=== PATIENT | female | born 1945 | race Caucasian/White ===

== ENCOUNTER 2022-03-29 08:08 | Emergency (ER) | payer OTHER ==
--- OUTSIDE RECORDS SUMMARY | 2022-03-29 08:12 | XMS REPORT | Continuity of Care Document ---
:1945 Author Organization [facility] t Address [address] [place] [address] Care Team Providers Name Role Phone Sunny BELLA, Elyse Butts Primary Care Physician [phone] ALCIRA AHUJA Attending Clinician Unavailable [facility] Attending Clinician Unavailable MARGARET HUANG Attending Clinician Unavailable [facility] Attending Clinician Unavailable CARMEN LOOMIS Attending Clinician Unavailable ELYSE PETERS Attending Clinician Unavailable Sunny BELLA, Elyse Butts Attending Clinician [phone] KURTIS MANUEL Attending Clinician Unavailable Rebeka-Mbayo_A_AH Attending Clinician Unavailable Rebeka-Mbayo_A_AH Admitting Clinician Unavailable Payers Payer Name Policy Type Policy Number Effective Date Expiration Date Jameel chan [employer] 16 [id number] 2021 HMO-POS 00:00:00 [facility] - [id number] 2019 [employer] 00:00:00 (MEDICARE REPLACEMENT/ADVANT AGE - HMO) Problems Condition Condition Condition Status Onset Resolution Last Treating Co mments Source Name Details Category Date Date Treatment Clinician Date Stage 3a Stage 3a Disease Active 2021-04 Kelse y chronic chronic 1-04 Seybflor kidney kidney 00:00: - disease disease 00 Externa l Mild major Mild major Disease Active K elsecassandra depression depression 9-20 Se ybold 00:00: - 00 Externa l Depression Depression Disease Active K elsey , , 5-18 Seybold unspecifie unspecifie 00:00: - d d 00 Externa depression depression l type type Urinary Urinary Disease Active Ghazal incontinen incontinen Se ybold ce, mixed ce, mixed - Externa l Hyperlipid Hyperlipid Disease Active Serene perez emia emia Seybold - Externa l HTN HTN Disease Active Ghazal (hypertens (hypertens Se ybold ion) ion) - Externa l Controlled Controlled Disease Active Serene perez type 2 type 2 Seybold diabetes diabetes - mellitus mellitus 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 l Allergies, Adverse Reactions, Alerts Allergy Allergy Status Severity Reaction(s) Onset Inactive Treating Comm ents Source Name Type Date Date Clinician Celecoxi Propensi Active Hives Ghazal b ty to 1-25 Seybold adverse 00:00: - reaction 00 Externa s l Celecoxi Propensi Active Hives Ghazal b ty to 1-25 Seybold adverse 00:00: reaction 00 s Social History Social Habit Start Date Stop Date Quantity Comments Source Tobacco use and 2021-12-28 2021-12-28 Smokeless tobacco Ke lsey Seybold - exposure 00:00:00 00:00:00 non-user External Sex [birth year] At [birth year] F Ghazal Se ybold - 00:00:00 00:00:00 External Smoking Status Start Date Stop Date Source Never smoked tobacco Ghazalelena Lee old - External Medications Ordered Filled Start Stop Current Ordering Indication Dosage Frequency Signature Comments Components Source Medication Medication Date Date Medication? Clinician (SIG) Name Name Cranberry 2021-04- No 1{capsu Take 1 Ke lsey 500 MG oral 04-16 le} capsule by S eybold Capsule 14:24: 00:00 mouth 2 - 12 :00 times Externa daily With l vitamin C Multiple 2021-04 Yes 1{capsu Take 1 Emerald ey Vitamins-Mi 04-16 le} capsule by Se ybold nerals 14:22: mouth 2 - (PreserVisi 19 times Externa on AREDS 2) daily HEB l oral brand Capsule Metformin 2021-04 Yes [id number] 500mg Take 1 Serene cassycassandra HCl 500 MG 04-16 tablet Seybold oral Tablet 00:00: (500 mg - 00 total) by Externa mouth l daily (with breakfast) Escitalopra 2021-04 Yes [id number] 20mg Take 1 Ghazal m Oxalate 0-11 tablet (20 Seyb old 20 MG oral 00:00: mg total) - Tablet 00 by mouth Externa daily l Alendronate Yes [id number] 70mg Take 1 Ghazal Sodium 9-20 tablet (70 Seybold (Fosamax) 00:00: mg total) - 70 MG oral 00 by mouth Exter na Tablet every 7 l days Atorvastati Yes [id number] 20mg Take 1 Ghazal n Calcium 9-06 tablet (20 Seyb old 20 MG oral 00:00: mg total) - Tablet 00 by mouth Externa every l night at bedtime Multiple Yes 1{capsu Take 1 Emerald ey Vitamins-Mi 5-18 le} capsule by Se ybold nerals 10:54: mouth 2 (PreserVisi 17 times on AREDS 2) daily HEB oral brand Capsule Cranberry Yes 1{capsu Take 1 Benjie sey 500 MG oral 5-18 le} capsule by Se ybold Capsule 10:54: mouth 2 17 times daily With vitamin C Escitalopra Yes [id number] 10mg Take 1 Ghazal m Oxalate 5-18 tablet (10 Seyb old 10 MG oral 00:00: mg total) Tablet 00 by mouth daily Metoprolol Yes 100mg Take 1 Emerald ey Succinate 5-02 tablet Seybold 100 MG oral 00:00: (100 mg - TABLET SR 00 total) by Exter na 24 HR mouth l daily Metoprolol Yes 100mg Take 1 Emerald ey Succinate 5-02 tablet Seybold 100 MG oral 00:00: (100 mg TABLET SR 00 total) by 24 HR mouth daily Oxybutynin Yes 5mg Take 1 Kelse y Chloride 5 5-02 tablet (5 Seyb old MG oral 00:00: mg total) TABLET SR 00 by mouth 24 HR every night at bedtime Metformin Yes 500mg Take 1 Kelse y HCl 500 MG 5-02 tablet Seybold oral Tablet 00:00: (500 mg 00 total) by mouth in the morning and 1 tablet (500 mg total) in the evening. Take with meals. Oxybutynin 2021-0 2021- No 5mg Take 1 Emerald ey Chloride 5 -05 21- tablet (5 Sey bold MG oral 00:00: 00:00 mg total) - TABLET SR 00 :00 by mouth 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 24 HR every l night at bedtime Metformin 2021-0 2021- No 500mg Take 1 Emerald ey HCl 500 MG 5-02-14 tablet Seybol d oral Tablet 00:00: 00:00 (500 mg - 00 :00 total) by Externa mouth in l the morning and 1 tablet (500 mg total) in the evening. Take with meals. Fluoxetine 2021-2021- No 20mg Take 1 Emerald ey HCl 20 MG 08-09 05-18 capsule Seybol d oral 00:00: 00:00 (20 mg Capsule 00 :00 total) by mouth every morning hydroCHLORO 2021-0 2021- No 25mg Take 25 mg Ghazal thiazide 25 3-09 03-09 by mouth Sey bold MG oral 15:26: 00:00 every Tablet 45 :00 morning Fluoxetine 0 Yes 20mg Take 20 mg K elsey HCl 20 MG 3-09 by mouth Seybol d oral 15:02: every Capsule 39 morning Oxybutynin 0 Yes 5mg Take 5 mg Ke lsey Chloride 5 3-09 by mouth Seybo ld MG oral 15:02: every TABLET SR 39 night at 24 HR bedtime Multiple 2021- Yes 1{capsu Take 1 Emerald ey Vitamins-Mi 3-09 le} capsule by Se ybold nerals 15:02: mouth 2 (PreserVisi 39 times on AREDS 2) daily HEB oral brand Capsule Cranberry Yes 1{capsu Take 1 Benjie sey 500 MG oral 3-09 le} capsule by Se ybold Capsule 15:02: mouth 2 39 times daily With vitamin C Metformin 0 Yes 500mg Take 500 Benjie sey HCl 500 MG 3-09 mg by Seybold oral Tablet 15:02: mouth 2 39 times daily (with meals) Metoprolol 2021-0 Yes 100mg Take 100 Ke lsey Succinate 3-09 mg by Seybold 100 MG oral 15:02: mouth TABLET SR 39 daily 24 HR Atorvastati 2021-2021- No 20mg Take 20 mg Ghazal n Calcium 1-25 01-25 by mouth Seybo ld 20 MG oral 10:57: 00:00 every Tablet 28 :00 night at bedtime Metformin Yes 500mg Take 500 Benjie sey HCl 500 MG 1-25 mg by Seybold oral Tablet 10:38: mouth 2 34 times daily (with meals) Metoprolol Yes 100mg Take 100 Ke lsey Succinate 1-25 mg by Seybold 100 MG oral 10:38: mouth TABLET SR 34 daily 24 HR hydroCHLORO Yes 25mg Take 25 mg Ghazal thiazide 25 1-25 by mouth Seyb old MG oral 10:38: every Tablet 34 morning Fluoxetine Yes 20mg Take 20 mg K elsey HCl 20 MG 1-25 by mouth Seybol d oral 10:38: every Capsule 34 morning Oxybutynin Yes 5mg Take 5 mg Ke lsey Chloride 5 1-25 by mouth Seybo ld MG oral 10:38: every TABLET SR 34 night at 24 HR bedtime Multiple Yes 1{capsu Take 1 Emerald ey Vitamins-Mi 1-25 le} capsule by Se ybold nerals 10:38: mouth 2 (PreserVisi 34 times on AREDS 2) daily HEB oral brand Capsule Cranberry Yes 1{capsu Take 1 Benjie sey 500 MG oral 1-25 le} capsule by Se ybold Capsule 10:38: mouth 2 34 times daily With vitamin C Atorvastati Yes [id number] 20mg Take 1 Ghazal n Calcium 1-25 tablet (20 Seyb old 20 MG oral 00:00: mg total) Tablet 00 by mouth every night at bedtime Atorvastati Yes [id number] 20mg Take 1 Ghazal n Calcium 1-25 tablet (20 Seyb old 20 MG oral 00:00: mg total) Tablet 00 by mouth every night at bedtime Atorvastati Yes [id number] 20mg Take 1 Ghazal n Calcium 1-25 tablet (20 Seyb old 20 MG oral 00:00: mg total) Tablet 00 by mouth every night at bedtime Immunizations Ordered Immunization Filled Immunization Date Status Commen Source Name Name Influenza Virus 2021-12-28 Completed Ghazal Se ybold Vaccine, 00:00:00 - External Quadrivalent, High Dose, Age 65 And Up Covid-19 Vaccine 2020-11-19 Completed Ghazal farris ([employer]), Mrna-lnp, 00:00:00 - Ext ernal Renny Protein, Pf, 30mcg/0.3ml,IM Covid-19 Vaccine 2020-11-19 Completed Ghazal zaragozaboaiden ([employer]), Mrna-lnp, 00:00:00 - Ext ernal Renny Protein, Pf, 30mcg/0.3ml,IM Covid-19 Vaccine 2020-11-19 Completed Ghazal zaragozaboaiden ([employer]), Mrna-lnp, 00:00:00 Renny Protein, Pf, 30mcg/0.3ml,IM Covid-19 Vaccine 2020-11-19 Completed Ghazal zaragozaboaiden ([employer]), Mrna-lnp, 00:00:00 Renny Protein, Pf, 30mcg/0.3ml,IM Covid-19 Vaccine 2020-11-19 Completed Ghazal farris ([facility]), Mrna-lnp, 00:00:00 Renny Protein, Pf, 30mcg/0.3ml,IM Covid-19 Vaccine 2020-11-19 Completed Ghazal farris ([employer]), Mrna-lnp, 00:00:00 Renny Protein, Pf, 30mcg/0.3ml,IM Covid-19 Vaccine 2020-11-19 Completed Ghazal zaragozabold ([facility]), Mrna-lnp, 00:00:00 Renny Protein, Pf, 30mcg/0.3ml,IM Covid-19 Vaccine 2020-11-19 Completed Ghazal zaragozaboaiden ([facility]), Mrna-lnp, 00:00:00 Renny Protein, Pf, 30mcg/0.3ml,IM Covid-19 Vaccine 2020-10-29 Completed Ghazal zaragozaboaiden ([employer]), Mrna-lnp, 00:00:00 - Ext ernal Renny Protein, Pf, 30mcg/0.3ml,IM Covid-19 Vaccine 2020-10-29 Completed Ghazal zaragozabold ([employer]), Mrna-lnp, 00:00:00 - Ext ernal Renny Protein, Pf, 30mcg/0.3ml,IM Covid-19 Vaccine 2020-10-29 Completed Ghazal Bocanegra eybold ([employer]), Mrna-lnp, 00:00:00 Renny Protein, Pf, 30mcg/0.3ml,IM Covid-19 Vaccine 2020-10-29 Completed Ghazal Bocanegra eybold ([employer]), Mrna-lnp, 00:00:00 Renny Protein, Pf, 30mcg/0.3ml,IM Covid-19 Vaccine 2020-10-29 Completed Ghazal zaragozabold ([employer]), Mrna-lnp, 00:00:00 Renny Protein, Pf, 30mcg/0.3ml,IM Covid-19 Vaccine 2020-10-29 Completed Ghazal zaragozabold ([employer]), Mrna-lnp, 00:00:00 Renny Protein, Pf, 30mcg/0.3ml,IM Covid-19 Vaccine 2020-10-29 Completed Ghazal Bocanegra eybold ([employer]), Mrna-lnp, 00:00:00 Renny Protein, Pf, 30mcg/0.3ml,IM Covid-19 Vaccine 2020-10-29 Completed Ghazal Bocanegra eybold ([employer]), Mrna-lnp, 00:00:00 Renny Protein, Pf, 30mcg/0.3ml,IM Vital Signs Vital Name Observation Time Observation Value Comments Source Systolic blood 2022-02-14 20:20:00 115 mm[Hg] Ghazal Engle - pressure External Diastolic blood 2022-02-14 20:20:00 72 mm[Hg] Shanelle Engle - pressure External Heart rate 2022-02-14 20:20:00 80 /min Ghazal Jameel brenton - External Body temperature 2022-02-14 20:20:00 36.67 Rita Emerald ey Kadie - External Respiratory rate 2022-02-14 20:20:00 14 /min Emerald Engle - External Body height 2022-02-14 20:20:00 162.6 cm Ghazal Jameel brenton - External Body weight 2022-02-14 20:20:00 78.926 kg Ghazal Jameel brenton - External BMI 2022-02-14 20:20:00 29.87 kg/m2 Ghazal S eybold - External Oxygen saturation in 2022-02-14 20:20:00 99 /min Ghazal Leeold - Arterial blood by External Pulse oximetry Systolic blood 2021-08-25 15:49:00 128 mm[Hg] Ghazal Seybold pressure Diastolic blood 2021-08-25 15:49:00 60 mm[Hg] Kelse y Seybold pressure Heart rate 2021-08-25 15:49:00 71 /min Ghazal S eybold Body temperature 2021-08-25 15:49:00 35.33 Rita Emerald ey Seybold Respiratory rate 2021-08-25 15:49:00 14 /min Emerald ey Seybold Body height 2021-08-25 15:49:00 162.6 cm Ghazal Bocanegra eybold Body weight 2021-08-25 15:49:00 75.297 kg Ghazal Bocanegra eybold BMI 2021-08-25 15:49:00 28.49 kg/m2 Ghazal S eybold Systolic blood 2021-06-16 20:52:00 136 mm[Hg] Ghazal Seybold pressure Diastolic blood 2021-06-16 20:52:00 66 mm[Hg] Kelse y Seybold pressure Heart rate 2021-06-16 20:52:00 88 /min Ghazal Bocanegra eybold Body temperature 2021-06-16 20:52:00 35.56 Rita Emerald ey Seybold Respiratory rate 2021-06-16 20:52:00 16 /min Emerald ey Seybold Body height 2021-06-16 20:52:00 162.6 cm Ghazal Bocanegra eybold Body weight 2021-06-16 20:52:00 73.483 kg Ghazal Bocanegra eybold BMI 2021-06-16 20:52:00 27.81 kg/m2 Ghazal S eybold Systolic blood 2021-05-04 16:21:00 128 mm[Hg] Ghazal Seybold pressure Diastolic blood 2021-05-04 16:21:00 60 mm[Hg] Kelse y Seybold pressure Heart rate 2021-05-04 16:21:00 70 /min Ghazal Bocanegra eybold Body temperature 2021-05-04 16:21:00 35.67 Rita Emerald ey Seybold Respiratory rate 2021-05-04 16:21:00 14 /min Emerald Engle Body height 2021-05-04 16:21:00 162.6 cm Ghazal farris Body weight 2021-05-04 16:21:00 70.308 kg Ghazal farris BMI 2021-05-04 16:21:00 26.61 kg/m2 Ghazal farris Procedures This patient has no known procedures. Encounters Start End Encounter Admission Attending Care Care Encounter Source Date/Time Date/Time Type Type Clinicians Facility Department ID 2022-04-18 2022-04-18 Outpatient GHAZAL POND [id number] Ghazal 13:00:00 13:00:00 Seybol d 2022-03-29 2022-03-29 Outpatient GHAZAL AHUJA [id number] Ghazal 14:00:00 14:00:00 ALCIRA Seybol d 2022-03-18 2022-03-18 Outpatient GHAZAL AHUJA [id number] Ghazal 11:00:00 11:00:00 ALCIRA Seybol d 2022-03-17 2022-03-17 Outpatient GHAZAL AHUJA [id number] Ghazal 00:00:00 00:00:00 ALCIRA Seybol d 2022-03-16 2022-03-16 Outpatient GHAZAL POND [id number] Ghazal 13:30:00 13:30:00 Seybol d 2022-03-16 2022-03-16 Outpatient GHAZAL AHUJA [id number] Ghazal 00:00:00 00:00:00 ALCIRA Seybol d 2022-03-14 2022-03-14 Outpatient GHAZAL AHUJA [id number] Ghazal 13:30:00 13:30:00 ALCIRA Seybol d 2022-03-10 2022-03-10 Outpatient GHAZAL AHUJA [id number] Ghazal 00:00:00 00:00:00 ALCIRA Seybol d 2022-03-10 2022-03-10 Outpatient GHAZAL AHUJA [id number] Ghazal 00:00:00 00:00:00 ALCIRA Seybol d 2022-03-09 2022-03-09 Outpatient LAB90 GHAZAL POND [id number] Ghazal 10:55:00 10:55:00 Seybol d 2022-03-07 2022-03-07 Outpatient PREZASGHAZAL [id number] Ghazal 00:00:00 00:00:00 ALCIRA Seybol d 2022-02-25 2022-02-25 Outpatient PREZASGHAZAL [id number] Ghazal 00:00:00 00:00:00 ALCIRA Seybol d 2022-02-25 2022-02-25 Outpatient PREZASGHAZAL [id number] Ghazal 00:00:00 00:00:00 ALCIRA Seybol d 2022-02-23 2022-02-23 Outpatient GHAZAL HUANG [id number] Ghazal 14:45:00 14:45:00 MARGARET Seybo ld 2022-02-21 2022-02-21 Outpatient GHAZAL HUANG [id number] Ghazal 14:45:00 14:45:00 MARGARET Seybo ld 2022-02-17 2022-02-17 Outpatient PREZAS, GHAZAL POND [id number] Gahzal 00:00:00 00:00:00 ALCIRA Seybol d 2022-02-15 2022-02-15 Outpatient PREZASGHAZAL [id number] Ghazal 00:00:00 00:00:00 ALCIRA Seybol d 2022-02-14 2022-02-14 Outpatient PREZASGHAZAL [id number] Ghazal 14:30:00 14:30:00 ALCIRA Seybol d 2022-02-11 2022-02-11 Outpatient PREZASGHAZAL [id number] Ghazal 00:00:00 00:00:00 ALCIRA Seybol d 2022-02-11 2022-02-11 Outpatient PREZASGHAZAL [id number] Ghazal 00:00:00 00:00:00 ALCIRA Seybol d 2022-02-10 2022-02-10 Outpatient LAB90 GHAZAL POND [id number] Ghazal 15:50:00 15:50:00 Seybol d 2022-02-07 2022-02-07 Outpatient PREZAGHAZAL Bocanegra [id number] Ghazal 00:00:00 00:00:00 ALCIRA Seybol d 2022-01-18 2022-01-18 Outpatient PREZAJameel, GHAZAL POND [id number] Ghazal 00:00:00 00:00:00 ALCIRA Seybol d 2022-01-18 2022-01-18 Outpatient PREZAGHAZAL Bocanegra [id number] Ghazal 00:00:00 00:00:00 ALCIRA Seybol d 2022-01-12 2022-01-12 Outpatient GHAZAL POND [id number] Ghazal 15:00:00 15:00:00 Seybol d 2022-01-12 2022-01-12 Outpatient GHAZAL POND [id number] Ghazal 14:00:00 14:00:00 Seybol d 2022-01-07 2022-01-07 Outpatient PREZAGHAZAL Bocanegra [id number] Ghazal 00:00:00 00:00:00 ALCIRA Seybol d 2022-01-07 2022-01-07 Outpatient CONFERENCEGHAZAL [id number] Ghazal 00:00:00 00:00:00 C Seybol d 2022-01-06 2022-01-06 Outpatient GHAZAL AHUJA [id number] Ghazal 00:00:00 00:00:00 ALCIRA Seybol d 2022-01-04 2022-01-04 Outpatient GHAZAL POND [id number] Ghazal 10:00:00 10:00:00 Seybol d 2022-01-04 2022-01-04 Outpatient GHAZAL POND [id number] Ghazal 09:55:00 09:55:00 Seybol d 2022-01-04 2022-01-04 Outpatient GHAZAL POND [id number] Ghazal 09:50:00 09:50:00 Seybol d 2022-01-04 2022-01-04 Outpatient GHAZAL POND [id number] Ghazal 09:45:00 09:45:00 Seybol d 2022-01-04 2022-01-04 Outpatient GHAZAL AHUJA [id number] Ghazal 00:00:00 00:00:00 ALCIRA Seybol d 2022-01-04 2022-01-04 Outpatient PREZAS, GHAZAL POND [id number] Ghazal 00:00:00 00:00:00 ALCIRA Seybol d 2022-01-03 2022-01-03 Outpatient PREZAS, GHAZAL POND [id number] Ghazal 00:00:00 00:00:00 ALCIRA Seybol d 2021-12-30 2021-12-30 Outpatient PREZAS, GHAZAL POND [id number] Ghazal 00:00:00 00:00:00 ALCIRA Seybol d 2021-12-29 2021-12-29 Outpatient PREZAS, GHAZAL POND [id number] Ghazal 00:00:00 00:00:00 ALCIRA Seybol d 2021-12-29 2021-12-29 Outpatient PREZAS, GHAZAL POND [id number] Ghazal 00:00:00 00:00:00 ALCIRA Seybol d 2021-12-28 2021-12-28 Outpatient LAB90 GHAZAL POND [id number] Ghazal 10:45:00 10:45:00 Seybol d 2021-12-28 2021-12-28 Outpatient PREZASGHAZAL [id number] Ghazal 09:45:00 09:45:00 ALCIRA Seybol d 2021-12-27 2021-12-27 Outpatient GHAZAL POND [id number] Ghazal 14:00:00 14:00:00 Seybol d 2021-12-27 2021-12-27 Outpatient GHAZAL POND [id number] Ghazal 13:00:00 13:00:00 Seybol d 2021-12-23 2021-12-23 Outpatient VLADISLAV, GHAZAL POND [id number] Ghazal 13:40:00 13:40:00 CARMEN Seybol d 2021-12-22 2021-12-22 Outpatient PREZAGHAZAL Bocanegra [id number] Ghazal 00:00:00 00:00:00 ALCIRA Seybol d 2021-12-14 2021-12-14 Outpatient PREZAGHAZAL Bocanegra [id number] Ghazal 00:00:00 00:00:00 ALCIRA Seybol d 2021-12-13 2021-12-13 Outpatient GHAZAL PETERS [id number] Ghazal 00:00:00 00:00:00 ELYSE Seybol d 2021-11-15 2021-11-15 Outpatient GHAZAL LOOMIS [id number] Ghazal 13:10:00 13:10:00 CARMEN Seybol d 2021-10-15 2021-10-15 Outpatient GHAZAL PETERS [id number] Ghazal 00:00:00 00:00:00 ELYSE Seybol d 2021-10-14 2021-10-14 Outpatient GHAZAL PETERS [id number] Ghazal 00:00:00 00:00:00 ELYSE Seybol d 2021-09-24 2021-09-24 Outpatient GHAZAL PETERS [id number] Ghazal 00:00:00 00:00:00 ELYSE Seybol d 2021-09-14 2021-09-14 Outpatient GHAZAL PETERS [id number] Ghazal 00:00:00 00:00:00 ELYSE Seybol d 2021-08-25 2021-08-25 Office Nick Peters [id number] Ghazal 11:00:00 11:15:00 Visit Elyse Fisher [id number] meet Butts [id number] 2021-08-23 2021-08-23 Outpatient GHAZAL PETERS [id number] Ghazal 00:00:00 00:00:00 ELYSE Seybol d 2021-08-12 2021-08-12 Outpatient GHAZAL PETERS [id number] Ghazal 00:00:00 00:00:00 ELYSE Seybol d 2021-08-09 2021-08-09 Outpatient GHAZAL PETERS [id number] Ghazal 00:00:00 00:00:00 ELYSE Seybol d 2021-06-16 2021-06-16 Office Nick PETERS [id number] Ghazal 15:15:00 15:15:00 Visit ELYSE Fisher [id number] Se meet [id number] 2021-05-04 2021-05-04 Office Nick Peters [id number] Ghazal 10:30:00 11:15:00 Visit Elyse Fisher [id number] Se meet Reyesalfredoroya [id number] 2021-04-30 2021-04-30 Outpatient GHAZAL MANUEL [id number] Ghazal 00:00:00 00:00:00 KURTIS Moura aiden 2019-06-20 2019-06-20 [facility] [address] [place] [address] 11:34:00 11:34:00 _A_AH [id number] Family Practic e 2019-06-20 2019-06-20 Outpatient Rebeka-Mbayo [facility] [address] [place] [address] 11:34:00 11:34:00 _A_AH [id number] Family Practic e Results This patient has no known results.
[2022-03-29] MEDS ORDERED: FAMOTIDINE 20 MG/2 ML VIAL IV ONE (08:38)
[2022-03-29 08:44] LABS: Urine Blood Trace-intact (Negative); Urine Glucose Negative (Negative); Urine Protein Negative (Negative); Urine Specific Gravity 1.015 (1.005-1.030); Urine pH 5.5 (5.0-7.0)
[2022-03-29 08:47] LABS: Absolute Lymphocytes (CBC) 0.9 K/uL (0.7-4.9); Hematocrit 38.4 % (36.0-45.0); Lymphocytes % 17.9 % (15.3-44.8); MCV 87.4 fL (80-100); MPV 7.4 fL (7.6-11.3)
[2022-03-29 08:56] LABS: Urine Bacteria None Seen /HPF (<20); Urine Mucus Slight /HPF (None Seen); Urine RBC <5 /HPF (None Seen)
[2022-03-29 09:05] LABS: Albumin 3.6 g/dL (3.4-5.0); Bilirubin Total 0.6 mg/dL (0.2-1.0); Magnesium 1.9 mg/dL (1.6-2.4); Potassium 4.1 mmol/L (3.5-5.1); Protein, Total 7.7 g/dL (6.4-8.2); Troponin High Sensitivity 6.6 pg/mL (<58.9)
--- NOTE | 2022-03-29 09:53 | RAD REPORT ---
EXAM DESCRIPTION: CT - Abdomen Pelvis W Contrast - 03/29/2022 9:19 am CLINICAL HISTORY: Abdominal pain/epigastric pain COMPARISON: none. TECHNIQUE: Computed axial tomography of the abdomen pelvis was obtained. 100 cc Isovue-300 was admin istered intravenously. Oral contrast was not requested which limits evaluation of bowel and appendix All CT scans are performed using dose optimization technique as appropriate and may include automated exposure control or mA/KV adjustment according to patient size. FINDINGS: The liver, pancreas, adrenals and kidneys are unremarkable. 2.3 centimeter area of increased density within the bladder. Additional 1.7 centimeter increased dens ity in the bladder. There is no evidence of diverticulitis. Small umbilical hernia. Hysterectomy. No adnexal mass IMPRESSION: Two areas of increased density within the bladder. I am uncertain if these represent rinku culi or contrast. The patient was given some IV contrast and then the injection was stopped has the p atient had pain. If clinically indicated further evaluation with a bladder ultrasound should be able to differentiate between the two possibilities.
--- NOTE | 2022-03-29 10:37 | ER ---
[facility] Name: Kelly Mejia Age: 77 yrs Sex: Female : 1945 Arrival Date: 03/29/2022 Time: 08:16 Bed 7 Private MD: Conrad Fernandez Diagnosis: Epigastric pain;Elevated lipase;Chronic kidney disease, unspecified Presentation: 03/29 08:22 Chief complaint: Patient states: Mid- abdominal pain since Monday, denies N/V/D. jl7 Coronavirus screen: At this time, the client does not indicate any symptoms associated with coronavirus-19. Ebola Screen: No symptoms or risks identified at this time. Initial Sepsis Screen: Does the patient meet any 2 criteria? No. Patient's initial sepsis screen is negative. Does the patient have a suspected source of infection? No. Patient's initial sepsis screen is negative. Risk Assessment: Do you want to hurt yourself or someone else? Patient reports no desire to harm self or others. Onset of symptoms was March 26, 2022. 08:22 Method Of Arrival: Ambulatory [facility] 08:22 Acuity: JEREMIAS 3 jl7 Triage Assessment: 08:25 General: Appears in no apparent distress. uncomfortable, Behavior is calm, cooperative, jl7 appropriate for age. Pain: Complains of pain in epigastric area Pain currently is 6 out of 10 on a pain scale. GI: Patient currently denies diarrhea, nausea, vomiting. Historical: - Allergies: 08:25 Celexa; jl7 - Home Meds: 08:25 metformin 500 mg Oral tab 1 tab [Active]; metoprolol succinate 100 mg oral CSpX 1 cap jl7 once daily [Active]; atorvastatin 20 mg oral tab 1 tab once daily [Active]; alendronate 70 mg oral tab 1 tab once wkly [Active]; PreserVision AREDS oral [Active]; - PMHx: 08:25 Diabetes mellitus; Hypertensive disorder; Hypercholesterolemia; jl7 - PSHx: 08:25 Total abdominal hysterectomy; jl7 - Immunization history:: Client reports receiving the 2nd dose of the Covid vaccine. - Social history:: Smoking status: Patient denies any tobacco usage or history of. Screenin:46 [facility] ED Fall Risk Assessment (Adult) History of falling in the last 3 months, ld1 including since admission No falls in past 3 months (0 pts) Confusion or Disorientation No (0 pts) Intoxicated or Sedated No (0 pts) Impaired Gait No (0 pts) Mobility Assist Device Used No (0 pt) Altered Elimination No (0 pt) Score/Fall Risk Level 0 - 2 = Low Risk Oriented to surroundings. Abuse screen: Denies threats or abuse. Denies injuries from another. Nutritional screening: No deficits noted. Tuberculosis screening: No symptoms or risk factors identified. Fall Risk No fall in past 12 months (0 pts). Assessment: 08:46 General: Appears in no apparent distress. comfortable, Behavior is calm, cooperative, ld1 appropriate for age. Pain: Complains of pain in epigastric area Pain does not radiate. Pain currently is 8 out of 10 on a pain scale. Quality of pain is described as sharp, throbbing, Pain began gradually, Is continuous. Neuro: Level of Consciousness is awake, alert, obeys commands, Oriented to person, place, time, situation. Cardiovascular: Capillary refill < 3 seconds Patient's skin is warm and dry. Respiratory: Airway is patent Respiratory effort is even, unlabored. GI: Abdomen is flat, non-distended, Bowel sounds present X 4 quads. Abd is soft and non tender. : No signs and/or symptoms were reported regarding the genitourinary system. EENT: No signs and/or symptoms were reported regarding the EENT system. Derm: No signs and/or symptoms reported regarding the dermatologic system. Musculoskeletal: No signs and/or symptoms reported regarding the musculoskeletal system. 10:54 Reassessment: Patient appears in no apparent distress at this time. Patient and/or ld1 family updated on plan of care and expected duration. Pain level reassessed. Patient is alert, oriented x 3, equal unlabored respirations, skin warm/dry/pink. Vital Signs: 08:22 BP 160 / 85; Pulse 70; Resp 17; Temp 97.9(TE); Pulse Ox 100% on R/A; Weight 77.11 kg; jl7 Height 5 ft. 4 in. (162.56 cm); Pain 6/10; 08:46 BP 167 / 95; Pain 8/10; ld1 09:42 BP 157 / 75; Pulse 70; Resp 18; Pulse Ox 98% on R/A; ld1 10:54 BP 149 / 79; Pulse 74; Resp 18; Pulse Ox 99% on R/A; Pain 2/10; ld1 08:22 Body Mass Index 29.18 (77.11 kg, 162.56 cm) jl7 ED Course: 08:16 Patient arrived in ED. jm9 08:16 Conrad Fernandez DO is Private Physician. jm9 08:16 Garett Browning DO is Attending Physician. ms3 08:25 Triage completed. jl7 08:25 Arm band placed on right wrist. jl7 08:29 Daja Celaya, RN is Primary Nurse. kc6 08:33 Sendy Walter, RN is Primary Nurse. ld1 08:45 Urine Microscopic Only Sent. ld1 08:45 Inserted saline lock: 20 gauge in left antecubital area, using aseptic technique. Blood ld1 collected. 08:46 Patient has correct armband on for positive identification. Placed in gown. Bed in low ld1 position. Call light in reach. Side rails up X2. electronics supervisor on. Pulse ox on. NIBP on. Door closed. Noise minimized. Warm blanket given. 08:46 No provider procedures requiring assistance completed. ld1 09:21 CT Abd/Pelvis - IV Contrast Only In Process Unspecified. EDMS 10:11 XRAY Chest (1 view) In Process Unspecified. EDMS 10:36 Conrad Fernandez DO is Referral Physician. ms3 10:38 Referral Physician role handed off by Conrad Fernandez DO ms3 10:38 Isaac Chambers MD is Referral Physician. ms3 10:55 IV discontinued, intact, bleeding controlled, No redness/swelling at site. ld1 Administered Medications: 08:35 Drug: Pepcid (famotidine) 20 mg Route: IVP; Site: right antecubital; ld1 09:15 Follow up: Response: No adverse reaction ld1 Medication: 08:46 VIS not applicable for this client. ld1 Outcome: 10:37 Discharge ordered by . ms3 10:54 Discharged to home ambulatory. ld1 10:54 Condition: stable 10:54 Discharge instructions given to patient, Instructed on discharge instructions, follow up and referral plans. medication usage, Demonstrated understanding of instructions, follow-up care, medications, Prescriptions given X 1. 10:55 Patient left the ED. ld1 Signatures: Dispatcher [employer] EDMS Eusebia Beltran RN RN jl7 Garett Browning DO DO ms3 Sendy Walter RN RN ld1 Sunshine Bernard jm9 Daja Celaya RN RN kc6
--- NOTE | 2022-03-29 10:37 | EDPHYS ---
Physician Documentation [facility] Name: Kelly Mejia Age: 77 yrs Sex: Female : 1945 Arrival Date: 03/29/2022 Time: 08:16 Bed 7 Private MD: Conrad Fernandez ED Physician Garett Browning HPI: 03/29 08:55 This 77 yrs old Female presents to ER via Ambulatory with complaints of Abdominal Pain. ms3 08:55 The patient presents with abdominal pain in the epigastric area. Onset: The ms3 symptoms/episode began/occurred 3 day(s) ago. The symptoms radiate to left back. Associated signs and symptoms: Pertinent negatives: nausea, vomiting, and diarrhea. The symptoms are described as burning. Modifying factors: The symptoms are alleviated by nothing, the symptoms are aggravated by nothing. Severity of pain: At its worst the pain was moderate in the emergency department the pain is unchanged. Historical: - Allergies: 08:25 Celexa; jl7 - Home Meds: 08:25 metformin 500 mg Oral tab 1 tab [Active]; metoprolol succinate 100 mg oral CSpX 1 cap jl7 once daily [Active]; atorvastatin 20 mg oral tab 1 tab once daily [Active]; alendronate 70 mg oral tab 1 tab once wkly [Active]; PreserVision AREDS oral [Active]; - PMHx: 08:25 Diabetes mellitus; Hypertensive disorder; Hypercholesterolemia; jl7 - PSHx: 08:25 Total abdominal hysterectomy; jl7 - Immunization history:: Client reports receiving the 2nd dose of the Covid vaccine. - Social history:: Smoking status: Patient denies any tobacco usage or history of. ROS: 08:55 Constitutional: Negative for fever, and chills. Neck: Negative for injury, pain, and ms3 swelling, Cardiovascular: Negative for chest pain, and palpitations. Respiratory: Negative for shortness of breath, cough, wheezing, and pleuritic chest pain. 08:55 MS/Extremity: Negative for injury and deformity, Skin: Negative for injury, rash, and discoloration. 08:55 Abdomen/GI: Positive for abdominal pain. 08:55 All other systems are negative. Exam: 08:55 Constitutional: This is a well developed, well nourished patient who is awake, alert, ms3 and in no acute distress. Head/Face: Normocephalic, atraumatic. Neck: Trachea midline, no cervical lymphadenopathy. Supple, full range of motion without nuchal rigidity, or vertebral point tenderness. No Meningismus. Chest/axilla: Normal chest wall appearance and motion. Nontender with no deformity. Cardiovascular: Regular rate and rhythm with a normal S1 and S2. No gallops, murmurs, or rubs. Normal PMI, no JVD. No pulse deficits. Respiratory: Lungs have equal breath sounds bilaterally, clear to auscultation and percussion. No rales, rhonchi or wheezes noted. No increased work of breathing, no retractions or nasal flaring. 08:55 Skin: Warm, dry with normal turgor. Normal color with no rashes, no lesions, and no evidence of cellulitis. MS/ Extremity: Pulses equal, no cyanosis. Neurovascular intact. Full, normal range of motion. 08:55 Abdomen/GI: Inspection: abdomen appears normal, Bowel sounds: normal, Palpation: mild abdominal tenderness, in the epigastric area. 08:57 ECG was reviewed by the Attending Physician. ms3 Vital Signs: 08:22 BP 160 / 85; Pulse 70; Resp 17; Temp 97.9(TE); Pulse Ox 100% on R/A; Weight 77.11 kg; jl7 Height 5 ft. 4 in. (162.56 cm); Pain 6/10; 08:46 BP 167 / 95; Pain 8/10; ld1 09:42 BP 157 / 75; Pulse 70; Resp 18; Pulse Ox 98% on R/A; ld1 10:54 BP 149 / 79; Pulse 74; Resp 18; Pulse Ox 99% on R/A; Pain 2/10; ld1 08:22 Body Mass Index 29.18 (77.11 kg, 162.56 cm) jl7 MDM: 08:48 Patient medically screened. ms3 08:55 Differential diagnosis: bowel obstruction, coronary artery disease, cholecystitis, ms3 Cholelithiasis, myocardia ischemia or infarction, non-specific abd pain, pancreatitis. 10:39 Data reviewed: vital signs, nurses notes, lab test result(s), EKG, radiologic studies. ms3 Data interpreted: traffic monitor specialist: rate is 65 beats/min, rhythm is normal sinus rhythm, regular, with no ectopy, Interpretation: normal rate, normal rhythm. Counseling: I had a detailed discussion with the patient and/or guardian regarding: the historical points, exam findings, and any diagnostic results supporting the discharge/admit diagnosis, lab results, radiology results, the need for outpatient follow up, to return to the emergency department if symptoms worsen or persist or if there are any questions or concerns that arise at home. Response to treatment: the patient's symptoms have mildly improved after treatment. Special discussion: I discussed with the patient/guardian in detail that at this point there is no indication for admission to the hospital. It is understood, however, that if the symptoms persist or worsen the patient needs to return immediately for re-evaluation. ED course: Discussed labs and imaging with patient. Patient to follow-up with Dr. Villaseñor in 2 to 3 days. Patient given prescription for Pepcid. Patient understands and agrees with plan. All questions were answered. Return precautions discussed to include nausea, vomiting, inability tolerate p.o., worsening symptoms, or any other concerns. On reevaluation patient's abdomen is benign, patient is alert and oriented x4, no apparent distress, nontoxic, ambulatory in the emergency department, tolerating p.o.. 03/29 08:30 Order name: CBC with Diff; Complete Time: 09:11 ms3 03/29 08:30 Order name: CMP; Complete Time: 09:11 ms3 03/29 08:30 Order name: Lipase; Complete Time: 09:11 ms3 03/29 08:30 Order name: Urine Microscopic Only; Complete Time: 09:11 ms3 03/29 08:31 Order name: Magnesium; Complete Time: 09:11 ms3 03/29 08:31 Order name: Troponin HS; Complete Time: 09:11 ms3 03/29 08:30 Order name: CT Abd/Pelvis - IV Contrast Only; Complete Time: 10:19 ms3 03/29 08:30 Order name: IV Saline Lock; Complete Time: 08:45 ms3 03/29 08:30 Order name: Labs collected and sent; Complete Time: 08:45 ms3 03/29 08:31 Order name: XRAY Chest (1 view) ms3 03/29 08:31 Order name: EKG; Complete Time: 08:31 ms3 03/29 08:44 Order name: Urine Dipstick-Ancillary; Complete Time: 09:11 EDMS 03/29 09:01 Order name: Urine Culture EDMS 03/29 08:30 Order name: Urine Dipstick-Ancillary (obtain specimen); Complete Time: 08:45 ms3 03/29 08:31 Order name: Cardiac monitoring; Complete Time: 08:45 ms3 03/29 08:31 Order name: EKG - Nurse/Tech; Complete Time: 08:45 ms3 03/29 08:31 Order name: O2 Per Protocol; Complete Time: 08:33 ms3 03/29 08:31 Order name: O2 Sat Monitoring; Complete Time: 08:33 ms3 EC:57 Rate is 63 beats/min. Rhythm is regular. Left axis deviation noted. TX interval is ms3 normal. QT interval is normal. Clinical impression: NSR w/ Non-specific ST/T Changes. Interpreted by me. Reviewed by me. Administered Medications: 08:35 Drug: Pepcid (famotidine) 20 mg Route: IVP; Site: right antecubital; ld1 09:15 Follow up: Response: No adverse reaction ld1 Disposition Summary: 03/29/22 10:37 Discharge Ordered Location: Home ms3 Condition: Stable ms3 Diagnosis - Epigastric pain ms3 - Elevated lipase ms3 - Chronic kidney disease, unspecified ms3 Followup: ms3 - With: Conrad Fernandez DO - When: 2 - 3 days - Reason: Recheck today's complaints Followup: ms3 - With: Isaac Chambers MD - When: 2 - 3 days - Reason: Recheck today's complaints Discharge Instructions: - Discharge Summary Sheet ms3 - Abdominal Pain, Adult ms3 Forms: - Medication Reconciliation Form ms3 - Thank You Letter ms3 - Antibiotic Education ms3 - Prescription Opioid Use ms3 Prescriptions: - Pepcid 20 mg Oral Tablet - take 1 tablet by ORAL route every 12 hours for 10 days; 20 tablet; Refills: 0, ms3 Product Selection Permitted Signatures: Dispatcher [employer] Eusebia Chaparro RN RN jl7 Garett Browning DO DO ms3 Sendy Walter RN RN ld1
--- NOTE | 2022-03-29 11:11 | RAD REPORT ---
EXAM DESCRIPTION: [place] Single View03/29/2022 10:09 am CLINICAL HISTORY: Abdominal pain COMPARISON: none FINDINGS: The lungs appear clear of acute infiltrate. The heart is normal size IMPRESSION: No acute abnormalities displayed
[2022-03-29 11:17] VITALS: TEMP 97.9
[2022-03-29 11:21] VITALS: BP 149/79; O2SAT 99
--- NOTE | 2022-03-29 15:14 | EKG ---
Test Date: 2022-03-29 Test Time: 08:47:37 [place]lez Filter Operator: KIEL MEASUREMENT RESULTS: Intervals: Rate: 63 [place]: 208 QRSD: 74 QT: 444 QTc: 454 [place]: P: 77 [place]: 208 QRS: 0 T: 77 INTERPRETIVE STATEMENTS: Normal sinus rhythm Normal ECG Compared to ECG 08/01/2013 16:30:47 No significant changes Electronically Signed On 03-29-22 15:14:27 GENERAL LABOR FORKLIFT OPERATOR by Hesham Staley
== END 2022-03-29 10:55 | disposition home or self-care (01) ==
LOC: ER 08:08
DX: R10.13 Epigastric pain (principal); E11.22 Type 2 diabetes mellitus with diabetic chronic kidney disease; I12.9 Hypertensive chronic kidney disease with stage 1 through stage 4 chronic kidney disease, or unspecified chronic kidney disease; N18.9 Chronic kidney disease, unspecified; R79.89 Other specified abnormal findings of blood chemistry; Z88.8 Allergy status to other drugs, medicaments and biological substances
CPT/HCPCS: 93005; 87088; 85025; 87086; 36415; 83735; 84484; 83690; 80053; 74177; 71045; Q9967; 81003; 81015; 96374; 99284

== ENCOUNTER 2022-11-11 12:38 | Emergency (ER) | payer OTHER ==
--- OUTSIDE RECORDS SUMMARY | 2022-11-11 12:43 | XMS REPORT | Continuity of Care Document ---
:1945 Author Organization [facility] t Address [address] [address] Care Team Providers Name Role Phone Sunny BELLA, Elyse Butts Primary Care Physician [phone] Alcira Fernandez Attending Clinician Unavailable ALCIRA FERNANDEZ Attending Clinician Unavailable LAB90 Attending Clinician Unavailable MD SAIGE Attending Clinician Unavailable MARGARET HUANG Attending Clinician Unavailable CONFERENCE, BDC Attending Clinician Unavailable CARMEN LOOMIS Attending Clinician Unavailable ELYSE PETERS Attending Clinician Unavailable Sunny BELLA, Elyse Butts Attending Clinician [phone] KURTIS MANUEL Attending Clinician Unavailable Rebeka-Mbayo_A_AH Attending Clinician Unavailable Rebeka-Mbayo_A_AH Admitting Clinician Unavailable Payers Payer Name Policy Type Policy Number Effective Date Expiration Date S rocio [employer] 16 [id number] 2021 HMO-POS 00:00:00 [employer] [facility] [place] - [id number] 2019 [employer] 00:00:00 (MEDICARE REPLACEMENT/ADVANT AGE - HMO) Problems Condition Condition Condition Status Onset Resolution Last Treating Co mments Source Name Details Category Date Date Treatment Clinician Date DDD DDD Disease Active Ghazal (nghiaerat (degenerat 5-24 Se ybold karon disc karon disc 00:00: - disease), disease), 00 Exte rna cervical cervical l History of History of Disease Active Serene perez cyst of cyst of 3-14 Seybold breast breast 00:00: - 00 Externa l Type 2 Type 2 Disease Active Ghazal diabetes diabetes 2-22 Seybol d mellitus mellitus 00:00: - with stage with stage 00 Ex terna 3a chronic 3a chronic l kidney kidney disease, disease, without without long-term long-term current current use of use of insulin insulin Cyst of Cyst of Disease Active Ghazal right right 1-19 Seybold kidney kidney 00:00: - 00 Externa l Epigastric Epigastric Disease Active 2021-04 Serene perez pain pain 2-22 Seybold 00:00: - 00 Externa l Bladder Bladder Disease Active 2021-04 Ghazal stones stones 2-22 Seybold 00:00: - 00 Externa l Mass of Mass of Disease Active 2021-04 Ghazal left left 2-22 Seybold kidney kidney 00:00: - 00 Externa l Stage 3a Stage 3a Disease Active 2021-04 Kelse y chronic chronic 1-04 Seybold kidney kidney 00:00: - disease disease 00 Externa l Mild major Mild major Disease Active Serene perez depression depression 9-20 Se ybold 00:00: - 00 Externa l Depression Depression Disease Active K chris , , 5-18 Seybold unspecifie unspecifie 00:00: - d d 00 Externa depression depression l type type Urinary Urinary Disease Active Ghazal incontinen incontinen Se ybold ce, mixed ce, mixed - Externa l DM type 2 DM type 2 Disease Active Benjie sey with with Seybold diabetic diabetic - mixed mixed Externa hyperlipid hyperlipid l emia emia Hyperlipid Hyperlipid Disease Active Serene perez emia emia Seybold - Externa l HTN HTN Disease Active Ghazal (hypertens (hypertens Se ybold ion) ion) - Externa l Allergies, Adverse Reactions, Alerts Allergy Allergy Status Severity Reaction(s) Onset Inactive Treating Comm ents Source Name Type Date Date Clinician Celecoxi Propensi Active Hives Ghazal b ty to 1-25 Seybold adverse 00:00: - reaction 00 Externa s l Celecoxi Propensi Active Hives Ghazal b ty to 1-25 Seybold adverse 00:00: reaction 00 s Citalopr Propensi Active Other Ghazal am ty to 9-10 reaction( Seybold Hydrobro adverse 00:00: s): - mide reaction 00 Hives/Ramin Exter na s h l Social History Social Habit Start Date Stop Date Quantity Comments Source Gender identity 2021-04-29 Identifies as Ghazal Walterybold 13:21:02 female gender - External (finding) Sexual orientation 2021-04-29 Heterosexual Emerald zaragoza Seybold 13:21:02 (finding) - External Tobacco use and 2021-12-28 2021-12-28 Smokeless tobacco Ke juan joséey Seybold exposure 00:00:00 00:00:00 non-user - External History of Social 2021-12-28 2021-12-28 Ghazal Seybold function 00:00:00 00:00:00 - External Sex [birth year] F Ghazal Walter ybold 00:00:00 00:00:00 - External Smoking Status Start Date Stop Date Source Never smoked tobacco Ghazal Seyb old - External Medications Ordered Filled Start Stop Current Ordering Indication Dosage Frequency Signature Comments Components Source Medication Medication Date Date Medication? Clinician (SIG) Name Name Multiple Yes 1{capsu Take 1 Emerald ey Vitamins-Mi 5-24 le} capsule by Se ybflor nerals 10:17: mouth 2 - (PreserVisi 05 times Externa on AREDS 2) daily HEB l oral brand Capsule glipiZIDE 5 Yes [id number] 5mg Take 1 Ghazal MG oral 5-24 tablet (5 Seybold Tablet 00:00: mg total) - 00 by mouth Externa daily l (before a meal) Escitalopra Yes [id number] 20mg Take 1 Ghazal m Oxalate 5-24 tablet (20 Seyb old 20 MG oral 00:00: mg total) - Tablet 00 by mouth Externa daily l Gabapentin Yes [id number] 100mg Q.5D Take 1 Ghazal 100 MG oral 5-24 capsule Seybo ld Capsule 00:00: (100 mg - 00 total) by Externa mouth 2 l times daily as needed Multiple Yes 1{capsu Take 1 Emerald ey Vitamins-Mi 3-14 le} capsule by Se Identifyflor nerals 11:12: mouth 2 - (PreserVisi 08 times Externa on AREDS 2) daily HEB l oral brand Capsule Multiple Yes 1{capsu Take 1 Emerald ey Vitamins-Mi 2-22 le} capsule by ybflor nerals 10:21: mouth 2 - (PreserVisi 16 times Externa on AREDS 2) daily HEB l oral brand Capsule Escitalopra Yes [id number] TAKE 1 Ghazal m Oxalate 2-16 TABLET Seybold 20 MG oral 00:00: DAILY - Tablet 00 Externa l Escitalopra Yes [id number] TAKE 1 Ghazal m Oxalate 2-16 TABLET Seybold 20 MG oral 00:00: DAILY - Tablet 00 Externa l Escitalopra 2022- No [id number] TAKE 1 Ghazal m Oxalate 2-16 05-24 TABLET Seybold 20 MG oral 00:00: 00:00 DAILY - Tablet 00 :00 Externa l glipiZIDE 5 Yes [id number] 5mg Take 1 Ghazal MG oral 1-23 tablet (5 Seybold Tablet 00:00: mg total) - 00 by mouth Externa daily l (before a meal) glipiZIDE 5 Yes [id number] 5mg Take 1 Ghazal MG oral 1-23 tablet (5 Seybold Tablet 00:00: mg total) - 00 by mouth Externa daily l (before a meal) glipiZIDE 5 0 2022- No [id number] 5mg Take 1 Ghazal MG oral 1-23 05-24 tablet (5 Seybol d Tablet 00:00: 00:00 mg total) - 00 :00 by mouth Externa daily l (before a meal) Multiple Yes 1{capsu Take 1 Emerald ey Vitamins-Mi 1-19 le} capsule by Identifyflor nerals 10:39: mouth 2 - (PreserVisi 53 times Externa on AREDS 2) daily HEB l oral brand Capsule Metoprolol Yes [id number] 100mg Take 1 Ghazal Succinate 1-19 tablet Seybold 100 MG oral 00:00: (100 mg - TABLET SR 00 total) by Exter na 24 HR mouth l daily glipiZIDE 5 Yes [id number] 5mg Take 1 Ghazal MG oral 1-19 tablet (5 Seybold Tablet 00:00: mg total) - 00 by mouth Externa daily l (before a meal) Metoprolol Yes [id number] 100mg Take 1 Ghazal Succinate 1-19 tablet Seybold 100 MG oral 00:00: (100 mg - TABLET SR 00 total) by Exter na 24 HR mouth l daily Metoprolol Yes [id number] 100mg Take 1 Ghazal Succinate 1-19 tablet Seybold 100 MG oral 00:00: (100 mg - TABLET SR 00 total) by Exter na 24 HR mouth l daily Metoprolol Yes [id number] 100mg Take 1 Ghazal Succinate 1-19 tablet Seybold 100 MG oral 00:00: (100 mg - TABLET SR 00 total) by Exter na 24 HR mouth l daily glipiZIDE 5 2022- No [id number] TAKE 1 Ghazal MG oral 1-19 02-22 TABLET Seybold Tablet 00:00: 00:00 DAILY - 00 :00 BEFORE A Externa MEAL. l Multiple 2021-04 Yes 1{capsu Take 1 Emerald ey Vitamins-Mi 2-22 le} capsule by Se anyiold katty 10:24: mouth 2 - (PreserVisi 56 times Externa on AREDS 2) daily HEB l oral brand Capsule Famotidine 2021-04 Yes [id number] 20mg Q.5D Take 1 Ghazal (PEPCID) 20 2-22 tablet (20 Se ybold MG oral 00:00: mg total) - tablet 00 by mouth 2 Externa times l daily as needed for heartburn Dicyclomine 2021-04 Yes [id number] 10mg Q.[id number] Take 1 Ghazal HCl 10 MG 2-22 [id number] capsule S eybold oral 00:00: 3D (10 mg - Capsule 00 total) by Externa mouth 3 l times daily as needed (stomach spasm) Famotidine 2021-04 Yes [id number] 20mg Q.5D Take 1 Ghazal (PEPCID) 20 2-22 tablet (20 Se ybold MG oral 00:00: mg total) - tablet 00 by mouth 2 Externa times l daily as needed for heartburn Dicyclomine 2021-04 Yes [id number] 10mg Q.[id number] Take 1 Ghazal HCl 10 MG -22 [id number] capsule S eybold oral 00:00: 3D (10 mg - Capsule 00 total) by Externa mouth 3 l times daily as needed (stomach spasm) Famotidine 2021-04 Yes [id number] 20mg Q.5D Take 1 Ghazal (PEPCID) 20 2-22 tablet (20 Se ybold MG oral 00:00: mg total) - tablet 00 by mouth 2 Externa times l daily as needed for heartburn Famotidine 2021-04 Yes [id number] 20mg Q.5D Take 1 Ghazal (PEPCID) 20 2-22 tablet (20 Se ybold MG oral 00:00: mg total) - tablet 00 by mouth 2 Externa times l daily as needed for heartburn Famotidine 2021-04 Yes [id number] 20mg Q.5D Take 1 Ghazal (PEPCID) 20 2-22 tablet (20 Se ybold MG oral 00:00: mg total) - tablet 00 by mouth 2 Externa times l daily as needed for heartburn Dicyclomine 2021-04- No [id number] 10mg Q.[id number] Take 1 Ghazal HCl 10 MG 2-01 06- [id number] capsule Seybold oral 00:00: 00:00 3D (10 mg - Capsule 00 :00 total) by Externa mouth 3 l times daily as needed (stomach spasm) Famotidine 2021-04- No TAKE ONE Ke lsey (PEPCID) 20 2-20 12-22 (1) Seybold MG oral 00:00: 00:00 TABLET(S) - tablet 00 :00 BY MOUTH Externa EVERY l TWELVE HOURS FOR 10 DAYS. Cranberry 2021-04- No 1{capsu Take 1 Ke [...] l oral brand Capsule Metformin 2021-04 Yes [id number] 500mg Take 1 K elsey HCl 500 MG 1-07 tablet Seybold oral Tablet 00:00: (500 mg - 00 total) by Externa mouth l daily (with breakfast) Metformin 2021-04 Yes [id number] 500mg Take 1 K elsey HCl 500 MG 1-07 tablet Seybold oral Tablet 00:00: (500 mg - 00 total) by Externa mouth l daily (with breakfast) Metformin 2021-04- No [id number] 500mg Take 1 Ghazal HCl 500 MG 1-07 -19 tablet Seybol d oral Tablet 00:00: 00:00 (500 mg - 00 :00 total) by Externa mouth l daily (with breakfast) Escitalopra 2021-04 Yes [id number] 20mg Take 1 Ghazal m Oxalate 0-11 tablet (20 Seyb old 20 MG oral 00:00: mg total) - Tablet 00 by mouth Externa daily l Escitalopra 2021-04 Yes [id number] 20mg Take 1 Ghazal m Oxalate 0-11 tablet (20 Seyb old 20 MG oral 00:00: mg total) - Tablet 00 by mouth Externa daily l Escitalopra 2021-04 Yes [id number] 20mg Take 1 Ghazal m Oxalate 0-11 tablet (20 Seyb old 20 MG oral 00:00: mg total) - Tablet 00 by mouth Externa daily l Alendronate Yes [id number] 70mg Take 1 Ghazal Sodium 9-20 tablet (70 Seybold (Fosamax) 00:00: mg total) - 70 MG oral 00 by mouth Exter na Tablet every 7 l days Alendronate Yes [id number] 70mg Take 1 Ghazal Sodium 9-20 tablet (70 Seybold (Fosamax) 00:00: mg total) - 70 MG oral 00 by mouth Exter na Tablet every 7 l days Alendronate Yes [id number] 70mg Take 1 Ghazal Sodium 9-20 tablet (70 Seybold (Fosamax) 00:00: mg total) - 70 MG oral 00 by mouth Exter na Tablet every 7 l days Alendronate Yes [id number] 70mg Take 1 Ghazal Sodium 9-20 tablet (70 Seybold (Fosamax) 00:00: mg total) - 70 MG oral 00 by mouth Exter na Tablet every 7 l days Alendronate Yes [id number] 70mg Take 1 Ghazal Sodium 9-20 tablet (70 Seybold (Fosamax) 00:00: mg total) - 70 MG oral 00 by mouth Exter na Tablet every 7 l days Alendronate Yes [id number] 70mg Take 1 Ghazal Sodium 9-20 tablet (70 Seybold (Fosamax) 00:00: mg total) - 70 MG oral 00 by mouth Exter na Tablet every 7 l days Atorvastati Yes [id number] 20mg Take 1 Ghazal n Calcium 9-06 tablet (20 Seyb old 20 MG oral 00:00: mg total) - Tablet 00 by mouth Externa every l night at bedtime Atorvastati 0 Yes [id number] 20mg Take 1 Ghazal n Calcium 9-06 tablet (20 Seyb old 20 MG oral 00:00: mg total) - Tablet 00 by mouth Externa every l night at bedtime Atorvastati 0 Yes [id number] 20mg Take 1 Ghazal n Calcium 9-06 tablet (20 Seyb old 20 MG oral 00:00: mg total) - Tablet 00 by mouth Externa every l night at bedtime Atorvastati 0 Yes [id number] 20mg Take 1 Ghazal n Calcium 9-06 tablet (20 Seyb old 20 MG oral 00:00: mg total) - Tablet 00 by mouth Externa every l night at bedtime Atorvastati 0 Yes [id number] 20mg Take 1 Ghazal n Calcium 9-06 tablet (20 Seyb old 20 MG oral 00:00: mg total) - Tablet 00 by mouth Externa every l night at bedtime Atorvastati Yes [id number] 20mg Take 1 Ghazal n Calcium 9-06 tablet (20 Seyb old 20 MG oral 00:00: mg total) - Tablet 00 by mouth Externa every l night at bedtime Multiple 2021-0 Yes 1{capsu Take 1 Emerald ey Vitamins-Mi 5-18 le} capsule by Se ybold nerals 10:54: mouth 2 (PreserVisi 17 times on AREDS 2) daily HEB oral brand Capsule Cranberry Yes 1{capsu Take 1 Benjie sey 500 MG oral 5-18 le} capsule by Se ybold Capsule 10:54: mouth 2 17 times daily With vitamin C Escitalopra Yes [id number] 10mg Take 1 Ghazal m Oxalate 5-18 tablet (10 Seyb old 10 MG oral 00:00: mg total) Tablet 00 by mouth daily Metoprolol 0 Yes 100mg Take 1 Emerald ey Succinate 5-02 tablet Seybold 100 MG oral 00:00: (100 mg - TABLET SR 00 total) by Exter na 24 HR mouth l daily Metoprolol 0 Yes 100mg Take 1 Emerald ey Succinate 5-02 tablet Seybold 100 MG oral 00:00: (100 mg - TABLET SR 00 total) by Exter na 24 HR mouth l daily Metoprolol 0 Yes 100mg Take 1 Emerald ey Succinate 5-02 tablet Seybold 100 MG oral 00:00: (100 mg TABLET SR 00 total) by 24 HR mouth daily Oxybutynin 0 Yes 5mg Take 1 Kelse y Chloride 5 -02 tablet (5 Seyb old MG oral 00:00: mg total) TABLET SR 00 by mouth 24 HR every night at bedtime Metformin 2021-0 Yes 500mg Take 1 Kelse y HCl 500 MG 5-02 tablet Seybold oral Tablet 00:00: (500 mg 00 total) by mouth in the morning and 1 tablet (500 mg total) in the evening. Take with meals. Metoprolol 2021-0 2022- No 100mg Take 1 Benjie sey Succinate 5-02 - tablet Seybold 100 MG oral 00:00: 00:00 (100 mg - TABLET SR 00 :00 total) by Exter na 24 HR mouth l daily Oxybutynin 2021-0 2021- No 5mg Take 1 Emerald ey Chloride 5 5-02 - tablet (5 Sey bold MG oral 00:00: 00:00 mg total) - TABLET SR 00 :00 by mouth [employer] Analyst a 24 HR every l night at bedtime Metformin 2021-0 2022- No 500mg Take 1 Emerald ey HCl 500 MG 5-02 -07 tablet Seybol d oral Tablet 00:00: 00:00 (500 mg - 00 :00 total) by Externa mouth in l the morning and 1 tablet (500 mg total) in the evening. Take with meals. Fluoxetine 2021- No 20mg Take 1 Emerald ey HCl 20 MG -05 15-18 capsule Seybol d oral 00:00: 00:00 (20 mg Capsule 00 :00 total) by mouth every morning hydroCHLORO 2021-0 2021- No 25mg Take 25 mg Ghazal thiazide 25 3-09 03-09 by mouth Sey bold MG oral 15:26: 00:00 every Tablet 45 :00 morning Metformin Yes 500mg Take 500 Benjie sey HCl 500 MG 3-09 mg by Seybold oral Tablet 15:02: mouth 2 39 times daily (with meals) Metoprolol Yes 100mg Take 100 Ke lsey Succinate 3-09 mg by Seybold 100 MG oral 15:02: mouth TABLET SR 39 daily 24 HR Fluoxetine Yes 20mg Take 20 mg K elsey HCl 20 MG 3-09 by mouth Seybol d oral 15:02: every Capsule 39 morning Oxybutynin Yes 5mg Take 5 mg Ke lsey Chloride 5 3-09 by mouth Seybo ld MG oral 15:02: every TABLET SR 39 night at 24 HR bedtime Multiple Yes 1{capsu Take 1 Emerald ey Vitamins-Mi 3-09 le} capsule by Se ybold nerals 15:02: mouth 2 (PreserVisi 39 times on AREDS 2) daily HEB oral brand Capsule Cranberry Yes 1{capsu Take 1 Benjie sey 500 MG oral 3-09 le} capsule by Se ybold Capsule 15:02: mouth 2 39 times daily With vitamin C Atorvastati 2021- No 20mg Take 20 mg Ghazal n Calcium 1-25 -25 by mouth Seybo ld 20 MG oral 10:57: 00:00 every Tablet 28 :00 night at bedtime Metformin Yes 500mg Take 500 Benjie sey HCl 500 MG 1-25 mg by Seybold oral Tablet 10:38: mouth 2 34 times daily (with meals) Metoprolol 0 Yes 100mg Take 100 Ke lsey Succinate [...] Emerald ey Vitamins-Mi 1-25 le} capsule by ybflor nerals 10:38: mouth 2 (PreserVisi 34 times on AREDS 2) daily HEB oral brand Capsule Cranberry Yes 1{capsu Take 1 Benjie sey 500 MG oral 1-25 le} capsule by ybflor Capsule 10:38: mouth 2 34 times daily With vitamin C Atorvastati Yes [id number] 20mg Take 1 Ghazal n Calcium 1-25 tablet (20 Seyb old 20 MG oral 00:00: mg total) Tablet 00 by mouth every night at bedtime Atorvastati Yes [id number] 20mg Take 1 Ghazal n Calcium 1-25 tablet (20 Seyb old 20 MG oral 00:00: mg total) Tablet 00 by mouth every night at bedtime Atorvastati Yes [id number] 20mg Take 1 Ghazal n Calcium 1-25 tablet (20 Seyb old 20 MG oral 00:00: mg total) Tablet 00 by mouth every night at bedtime Immunizations Ordered Immunization Filled Immunization Date Status Commen ts Source Name Name Influenza Virus 2021-12-28 Completed Ghazal de santiagoflor Vaccine, 00:00:00 - External Quadrivalent, High Dose, Age 65 And Up Influenza Virus 2021-12-28 Completed Ghazal Walter ybold Vaccine, 00:00:00 - External Quadrivalent, High Dose, Age 65 And Up Influenza Virus 2021-12-28 Completed Ghazal de santiagoflor Vaccine, 00:00:00 - External Quadrivalent, High Dose, Age 65 And Up Influenza Virus 2021-12-28 Completed Ghazal Walter ybold Vaccine, 00:00:00 - External Quadrivalent, High Dose, Age 65 And Up Influenza Virus 2021-12-28 Completed Ghazal Se ybold Vaccine, 00:00:00 - External Quadrivalent, High Dose, Age 65 And Up Influenza Virus 2021-12-28 Completed Ghazal Se ybold Vaccine, 00:00:00 - External Quadrivalent, High Dose, Age 65 And Up Covid-19 Vaccine 2020-11-19 Completed Ghazal S eybold ([facility]), Mrna-lnp, 00:00:00 - Ext ernal Renny Protein, Pf, 30mcg/0.3ml,IM Covid-19 Vaccine 2020-11-19 Completed Ghazal S eybold ([facility]), Mrna-lnp, 00:00:00 - Ext ernal Renny Protein, Pf, 30mcg/0.3ml,IM Covid-19 Vaccine 2020-11-19 Completed Ghazal Bocanegra eybold ([facility]), Mrna-lnp, 00:00:00 - Ext ernal Renny Protein, Pf, 30mcg/0.3ml,IM Covid-19 Vaccine 2020-11-19 Completed Ghazal S eybold ([facility]), Mrna-lnp, 00:00:00 - Ext ernal Renny Protein, Pf, 30mcg/0.3ml,IM Covid-19 Vaccine 2020-11-19 Completed Ghazal S eybold ([facility]), Mrna-lnp, 00:00:00 - Ext ernal Renny Protein, Pf, 30mcg/0.3ml,IM Covid-19 Vaccine 2020-11-19 Completed Ghazal S eybold ([facility]), Mrna-lnp, 00:00:00 - Ext ernal Renny Protein, Pf, 30mcg/0.3ml,IM Covid-19 Vaccine 2020-11-19 Completed Ghazal Bocanegra eybold ([facility]), Mrna-lnp, 00:00:00 Renny Protein, Pf, 30mcg/0.3ml,IM Covid-19 Vaccine 2020-11-19 Completed Ghazal S eybold ([facility]), Mrna-lnp, 00:00:00 Renny Protein, Pf, 30mcg/0.3ml,IM Covid-19 Vaccine 2020-11-19 Completed Ghazal Bocanegra eybold ([facility]), Mrna-lnp, 00:00:00 - Ext ernal Renny Protein, Pf, 30mcg/0.3ml,IM Covid-19 Vaccine 2020-11-19 Completed Ghazal Bocanegra eybold ([facility]), Mrna-lnp, 00:00:00 - Ext ernal Renny Protein, Pf, 30mcg/0.3ml,IM Covid-19 Vaccine 2020-11-19 Completed Ghazal Bocanegra eybold ([facility]), Mrna-lnp, 00:00:00 - Ext ernal Renny Protein, Pf, 30mcg/0.3ml,IM Covid-19 Vaccine 2020-11-19 Completed Ghazal Bocanegra eybold ([facility]), Mrna-lnp, 00:00:00 - Ext ernal Renny Protein, Pf, 30mcg/0.3ml,IM Covid-19 Vaccine 2020-11-19 Completed Ghazal Bocanegra eybold ([facility]), Mrna-lnp, 00:00:00 - Ext ernal Renny Protein, Pf, 30mcg/0.3ml,IM Covid-19 Vaccine 2020-11-19 Completed Ghazal S eybold ([facility]), Mrna-lnp, 00:00:00 - Ext ernal Renny Protein, Pf, 30mcg/0.3ml,IM Covid-19 Vaccine 2020-11-19 Completed Ghazal S eybold ([facility]), Mrna-lnp, 00:00:00 Renny Protein, Pf, 30mcg/0.3ml,IM Covid-19 Vaccine 2020-11-19 Completed Ghazal S eybold ([facility]), Mrna-lnp, 00:00:00 Renny Protein, Pf, 30mcg/0.3ml,IM Covid-19 Vaccine 2020-11-19 Completed Ghazal S eybold ([facility]), Mrna-lnp, 00:00:00 Renny Protein, Pf, 30mcg/0.3ml,IM Covid-19 Vaccine 2020-11-19 Completed Ghazal S eybold ([facility]), Mrna-lnp, 00:00:00 Renny Protein, Pf, 30mcg/0.3ml,IM Covid-19 Vaccine 2020-10-29 Completed Ghazal S eybold ([facility]), Mrna-lnp, 00:00:00 - Ext ernal Renny Protein, Pf, 30mcg/0.3ml,IM Covid-19 Vaccine 2020-10-29 Completed Ghazal S eybold ([facility]), Mrna-lnp, 00:00:00 - Ext ernal Renny Protein, Pf, 30mcg/0.3ml,IM Covid-19 Vaccine 2020-10-29 Completed Ghazal S eybold ([facility]), Mrna-lnp, 00:00:00 - Ext ernal Renny Protein, Pf, 30mcg/0.3ml,IM Covid-19 Vaccine 2020-10-29 Completed Ghzaal S eybold ([facility]), Mrna-lnp, 00:00:00 - Ext ernal Renny Protein, Pf, 30mcg/0.3ml,IM Covid-19 Vaccine 2020-10-29 Completed Ghazal S eybold ([facility]), Mrna-lnp, 00:00:00 - Ext ernal Renny Protein, Pf, 30mcg/0.3ml,IM Covid-19 Vaccine 2020-10-29 Completed Ghazal S eybold ([facility]), Mrna-lnp, 00:00:00 - Ext ernal Renny Protein, Pf, 30mcg/0.3ml,IM Covid-19 Vaccine 2020-10-29 Completed Ghazal S eybold ([facility]), Mrna-lnp, 00:00:00 Renny Protein, Pf, 30mcg/0.3ml,IM Covid-19 Vaccine 2020-10-29 Completed Ghazal S eybold ([facility]), Mrna-lnp, 00:00:00 - Ext ernal Renny Protein, Pf, 30mcg/0.3ml,IM Covid-19 Vaccine 2020-10-29 Completed Ghazal S eybold ([facility]), Mrna-lnp, 00:00:00 - Ext ernal Renny Protein, Pf, 30mcg/0.3ml,IM Covid-19 Vaccine 2020-10-29 Completed Ghazal S eybold ([facility]), Mrna-lnp, 00:00:00 Renny Protein, Pf, 30mcg/0.3ml,IM Covid-19 Vaccine 2020-10-29 Completed Ghazal S eybold ([facility]), Mrna-lnp, 00:00:00 - Ext ernal Renny Protein, Pf, 30mcg/0.3ml,IM Covid-19 Vaccine 2020-10-29 Completed Ghazal Bocanegra eybold ([facility]), Mrna-lnp, 00:00:00 - Ext ernal Renny Protein, Pf, 30mcg/0.3ml,IM Covid-19 Vaccine 2020-10-29 Completed Ghazal zaragozabold ([facility]), Mrna-lnp, 00:00:00 - Ext ernal Renny Protein, Pf, 30mcg/0.3ml,IM Covid-19 Vaccine 2020-10-29 Completed Ghazla Bocanegra eybold ([facility]), Mrna-lnp, 00:00:00 - Ext ernal Renny Protein, Pf, 30mcg/0.3ml,IM Covid-19 Vaccine 2020-10-29 Completed Ghazal Bocanegra eybold ([facility]), Mrna-lnp, 00:00:00 Renny Protein, Pf, 30mcg/0.3ml,IM Covid-19 Vaccine 2020-10-29 Completed Ghazal Bocanegra eybold ([facility]), Mrna-lnp, 00:00:00 Renny Protein, Pf, 30mcg/0.3ml,IM Covid-19 Vaccine 2020-10-29 Completed Ghazal Bocanegra eybold ([facility]), Mrna-lnp, 00:00:00 Renny Protein, Pf, 30mcg/0.3ml,IM Covid-19 Vaccine 2020-10-29 Completed Ghazal Bocanegra eybold ([facility]), Mrna-lnp, 00:00:00 Renny Protein, Pf, 30mcg/0.3ml,IM Vital Signs Vital Name Observation Time Observation Value Comments Source Systolic blood 2022-08-31 15:15:00 119 mm[Hg] Ghazal Engle - pressure External Diastolic blood 2022-08-31 15:15:00 61 mm[Hg] Shanelle Engle - pressure External Heart rate 2022-08-31 15:15:00 54 /min Ghazal farris - External Body temperature 2022-08-31 15:15:00 36.17 Rita Emerald Engle - External Respiratory rate 2022-08-31 15:15:00 19 /min Emerald ey Seybold - External Body height 2022-08-31 15:15:00 162.6 cm Ghazal Bocanegra eybold - External Body weight 2022-08-31 15:15:00 82.101 kg Ghazal S eybold - External BMI 2022-08-31 15:15:00 31.07 kg/m2 Ghazal S eybold - External Oxygen saturation in 2022-08-31 15:15:00 97 /min Ghazal Seybold - Arterial blood by External Pulse oximetry Systolic blood 2022-06-21 16:11:00 128 mm[Hg] Ghazal Seybold - pressure External Diastolic blood 2022-06-21 16:11:00 69 mm[Hg] Kelse y Seybold - pressure External Heart rate 2022-06-21 16:11:00 63 /min Ghazal S eybold - External Body temperature 2022-06-21 16:11:00 36.61 Rita Emerald ey Seybold - External Respiratory rate 2022-06-21 16:11:00 14 /min Emerald ey Seybold - External Body height 2022-06-21 16:11:00 162.6 cm Ghazal Bocanegra eybold - External Body weight 2022-06-21 16:11:00 77.111 kg Ghazal Bocanegra eybold - External BMI 2022-06-21 16:11:00 29.18 kg/m2 Ghazal Bocanegra eybold - External Oxygen saturation in 2022-06-21 16:11:00 99 /min Ghazal Seybold - Arterial blood by External Pulse oximetry Systolic blood 2022-06-01 16:18:00 117 mm[Hg] Ghazal Seybold - pressure External Diastolic blood 2022-06-01 16:18:00 64 mm[Hg] Kelse y Seybold - pressure External Heart rate 2022-06-01 16:18:00 69 /min Ghazal S eybold - External Body temperature 2022-06-01 16:18:00 36.72 Rita Emerald ey Seybold - External Respiratory rate 2022-06-01 16:18:00 14 /min Emerald ey Seybold - External Body height 2022-06-01 16:18:00 162.6 cm Ghazal S eybold - External Body weight 2022-06-01 16:18:00 78.019 kg Ghazal Bocanegra eybold - External BMI 2022-06-01 16:18:00 29.52 kg/m2 Ghazal Bocanegra eybold - External Oxygen saturation in 2022-06-01 16:18:00 99 /min Ghazal Seybold - Arterial blood by External Pulse oximetry Systolic blood 2022-04-28 16:37:00 130 mm[Hg] Ghazal Seybold - pressure External Diastolic blood 2022-04-28 16:37:00 60 mm[Hg] Benjiese y Seybold - pressure External Heart rate 2022-04-28 16:37:00 72 /min Ghazal Bocanegra eybold - External Body temperature 2022-04-28 16:37:00 35.89 Rita Emerald ey Seybold - External Respiratory rate 2022-04-28 16:37:00 14 /min Emerald ey Seybold - External Body height 2022-04-28 16:37:00 162.6 cm Ghazal Bocanegra eybold - External Body weight 2022-04-28 16:37:00 75.751 kg Ghazal Bocanegra eybold - External BMI 2022-04-28 16:37:00 28.67 kg/m2 Ghazal Bocanegra eybold - External Systolic blood 2022-03-31 16:21:00 148 mm[Hg] Ghazal Seybold - pressure External Diastolic blood 2022-03-31 16:21:00 74 mm[Hg] Benjiese y Seybold - pressure External Heart rate 2022-03-31 16:21:00 95 /min Ghazal Bocanegra eybold - External Body temperature 2022-03-31 16:21:00 36.39 Rita Emerald ey Seybold - External Respiratory rate 2022-03-31 16:21:00 14 /min Emerald ey Seybold - External Body height 2022-03-31 16:21:00 162.6 cm Ghazal Bocanegra eybold - External Body weight 2022-03-31 16:21:00 77.111 kg Ghazal Bocanegra eybold - External BMI 2022-03-31 16:21:00 29.18 kg/m2 Ghazal Bocanegra eybold - External Systolic blood 2022-02-14 20:20:00 115 mm[Hg] Ghazal Seybold - pressure External Diastolic blood 2022-02-14 20:20:00 72 mm[Hg] Kelse y Seybold - pressure External Heart rate 2022-02-14 20:20:00 80 /min Ghazal S eybold - External Body temperature 2022-02-14 20:20:00 36.67 Rita Emerald ey Seybold - External Respiratory rate 2022-02-14 20:20:00 14 /min Emerald ey Seybold - External Body height 2022-02-14 20:20:00 162.6 cm Ghazal S eybold - External Body weight 2022-02-14 20:20:00 78.926 kg Ghazal S eybold - External BMI 2022-02-14 20:20:00 29.87 kg/m2 Ghazal Bocanegra eybold - External Oxygen saturation in 2022-02-14 20:20:00 99 /min Ghazal Walterybold - Arterial blood by External Pulse oximetry Systolic blood 2021-08-25 15:49:00 128 mm[Hg] Ghazal Seybold pressure Diastolic blood 2021-08-25 15:49:00 60 mm[Hg] Kelse y Seybold pressure Heart rate 2021-08-25 15:49:00 71 /min Ghazal Bocanegra eybold Body temperature 2021-08-25 15:49:00 35.33 Rita Emerald ey Seybold Respiratory rate 2021-08-25 15:49:00 14 /min Emerald ey Seybold Body height 2021-08-25 15:49:00 162.6 cm Ghazal S eybold Body weight 2021-08-25 15:49:00 75.297 kg Ghazal S eybold BMI 2021-08-25 15:49:00 28.49 kg/m2 Ghazal S eybold Systolic blood 2021-06-16 20:52:00 136 mm[Hg] Ghazal Seybold pressure Diastolic blood 2021-06-16 20:52:00 66 mm[Hg] Kelse y Seybold pressure Heart rate 2021-06-16 20:52:00 88 /min Ghazal S eybold Body temperature 2021-06-16 20:52:00 35.56 Rita [...] Respiratory rate 2021-05-04 16:21:00 14 /min Emerald ey Seybold Body height 2021-05-04 16:21:00 162.6 cm Ghazal zaragozaboaiden Body weight 2021-05-04 16:21:00 70.308 kg Ghazal zaragozabold BMI 2021-05-04 16:21:00 26.61 kg/m2 Ghazal zaragozabold Procedures This patient has no known procedures. Encounters Start End Encounter Admission Attending Care Care Encounter Source Date/Time Date/Time Type Type Clinicians Facility Department ID 2022-08-10 Outpatient THIAGO Fernandez [facility] [id number] Common 13:20:02 Alcira [address] [facility] 2022-12-26 2022-12-26 Outpatient GHAZAL FERNANDEZ [id number] Ghazal 10:30:00 10:30:00 ALCIRA Seybol d 2022-11-11 2022-11-11 Outpatient GHAZAL FERNANDEZ [id number] Ghazal 00:00:00 00:00:00 ALCIRA Seybol d 2022-10-24 2022-10-24 Outpatient GHAZAL POND [id number] Ghazal 00:00:00 00:00:00 Seybol d 2022-09-27 2022-09-27 Outpatient GHAZAL POND [id number] Ghazal 00:00:00 00:00:00 Seybol d 2022-09-27 2022-09-27 Outpatient PREZAS, GHAZAL POND [id number] Ghazal 00:00:00 00:00:00 ALCIRA Seybol d 2022-09-27 2022-09-27 Outpatient GHAZAL POND [id number] Ghazal 00:00:00 00:00:00 Seybol d 2022-09-21 2022-09-21 Outpatient PREZAS, GHAZAL POND [id number] Ghazal 00:00:00 00:00:00 ALCIRA Seybol d 2022-09-01 2022-09-01 Outpatient PREZAS, GHAZAL POND [id number] Ghazal 00:00:00 00:00:00 ALCIRA Seybol d 2022-08-31 2022-08-31 Outpatient PREZASGHAZAL [id number] Ghazal 10:30:00 10:30:00 ALCIRA Seybol d 2022-08-31 2022-08-31 Outpatient PREZAS, GHAZAL POND [id number] Ghazal 00:00:00 00:00:00 ALCIRA Seybol d 2022-08-30 2022-08-30 Outpatient PREZASGHAZAL [id number] Ghazal 00:00:00 00:00:00 ALCIRA Seybol d 2022-08-29 2022-08-29 Outpatient LAB90 GHAZAL POND [id number] Ghazal 09:30:00 09:30:00 Seybol d 2022-08-15 2022-08-15 Outpatient PREZAS, GHAZAL POND [id number] Ghazal 00:00:00 00:00:00 ALCIRA Seybol d 2022-08-15 2022-08-15 Outpatient GHAZAL POND [id number] Ghazal 00:00:00 00:00:00 Seybol d 2022-08-14 2022-08-14 Outpatient PREZASGHAZAL [id number] Ghazal 00:00:00 00:00:00 ALCIRA Seybol d 2022-08-12 2022-08-12 Outpatient PREZASGHAZAL [id number] Ghazal 00:00:00 00:00:00 ALCIRA Seybol d 2022-08-01 2022-08-01 Outpatient GHAZAL POND [id number] Ghazal 10:00:00 10:00:00 Seybol d 2022-08-01 2022-08-01 Outpatient GHAZAL POND [id number] Ghazal 08:40:00 08:40:00 Seybol d 2022-07-20 2022-07-20 Outpatient PREZAS, GHAZAL POND [id number] Ghazal 00:00:00 00:00:00 ALCIRA Seybol d 2022-07-20 2022-07-20 Outpatient PREZAS, GHAZAL POND [id number] Ghazal 00:00:00 00:00:00 ALCIRA Seybol d 2022-07-20 2022-07-20 Outpatient GHAZAL POND [id number] Ghazal 00:00:00 00:00:00 Seybol d 2022-07-04 2022-07-04 Outpatient PREZAS, GHAZAL POND [id number] Ghazal 10:15:00 10:15:00 ALCIRA Seybol d 2022-06-23 2022-06-23 Outpatient PREZAS, GHAZAL POND [id number] Ghazal 10:30:00 10:30:00 ALCIRA Seybol d 2022-06-21 2022-06-21 Outpatient PREZAS, GHAZAL POND [id number] Ghazal 11:30:00 11:30:00 ALCIRA Seybol d 2022-06-19 2022-06-19 Outpatient MYKELSEYONL GHAZAL POND [id number] Ghazal 00:00:00 00:00:00 MD STAN Seybol d 2022-06-18 2022-06-18 Outpatient PREZASGHAZAL [id number] Gahzal 00:00:00 00:00:00 ALCIRA Seybol d 2022-06-01 2022-06-01 Outpatient PREZASGHAZAL [id number] Ghazal 10:30:00 10:30:00 ALCIRA Seybol d 2022-05-26 2022-05-26 Outpatient PREZASGHAZAL [id number] Ghazal 00:00:00 00:00:00 ALCIRA Seybol d 2022-05-24 2022-05-24 Outpatient LAB90 GHAZAL GHAZAL [id number] Ghazal 09:45:00 09:45:00 Seybol d 2022-05-22 2022-05-22 Outpatient BECKY GHAZAL GHAZAL [id number] Ghazal 00:00:00 00:00:00 MD STAN Seybol d 2022-05-12 2022-05-12 Outpatient PREZASGHAZAL [id number] Ghazal 00:00:00 00:00:00 ALCIRA Seybol d 2022-05-08 2022-05-08 Outpatient BECKY GHAZAL POND [id number] Ghazal 00:00:00 00:00:00 MD STAN Seybol d 2022-05-02 2022-05-02 Outpatient PREZASGHAZAL [id number] Ghazal 00:00:00 00:00:00 ALCIRA Seybol d 2022-04-28 2022-04-28 Outpatient PREZASGHAZAL [id number] Ghazal 10:45:00 10:45:00 ALCIRA Seybol d 2022-04-18 2022-04-18 Outpatient GHAZAL POND [id number] Ghazal 13:00:00 13:00:00 Seybol d 2022-04-15 2022-04-15 Outpatient PREZASGHAZAL [id number] Ghazal 00:00:00 00:00:00 ALCIRA Seybol d 2022-03-31 2022-03-31 Outpatient PREZASGHAZAL [id number] Ghazal 10:30:00 10:30:00 ALCIRA Seybol d 2022-03-31 2022-03-31 Outpatient PREZASGHAZAL [id number] Ghazal 00:00:00 00:00:00 ALCIRA Seybol d 2022-03-29 2022-03-29 Outpatient PREZASGHAZAL [id number] Ghazal 14:00:00 14:00:00 ALCIRA Seybol d 2022-03-29 2022-03-29 Outpatient PREZASGHAZAL [id number] Ghazal 00:00:00 00:00:00 ALCIRA Seybol d 2022-03-18 2022-03-18 Outpatient PREZAS, GHAZAL POND [id number] Ghazal 11:00:00 11:00:00 ALCIRA Seybol d 2022-03-17 2022-03-17 Outpatient PREZAS, GHAZAL POND [id number] Ghazal 00:00:00 00:00:00 ALCIRA Seybol d 2022-03-16 2022-03-16 Outpatient GHAZAL POND [id number] Ghazal 13:30:00 13:30:00 Seybol d 2022-03-16 2022-03-16 Outpatient PREZASGHAZAL [id number] Ghazal 00:00:00 00:00:00 ALCIRA Seybol d 2022-03-14 2022-03-14 Outpatient PREZASGHAZAL [id number] Ghazal 13:30:00 13:30:00 ALCIRA Seybol d 2022-03-10 2022-03-10 Outpatient PREZASGHAZAL [id number] Ghazal 00:00:00 00:00:00 ALCIRA Seybol d 2022-03-10 2022-03-10 Outpatient PREZAGHAZAL Bocanegra [id number] Ghazal 00:00:00 00:00:00 ALCIRA Seybol d 2022-03-09 2022-03-09 Outpatient LAB90 GHAZAL POND [id number] Ghazal 10:55:00 10:55:00 Seybol d 2022-03-07 2022-03-07 Outpatient PREZASGHAZAL [id number] Ghazal 00:00:00 00:00:00 ALCIRA Seybol d 2022-02-25 2022-02-25 Outpatient PREZASGHAZAL [id number] Ghazal 00:00:00 00:00:00 ALCIRA Seybol d 2022-02-25 2022-02-25 Outpatient PREZASGHAZAL [id number] Ghazal 00:00:00 00:00:00 ALCIRA Seybol d 2022-02-23 2022-02-23 Outpatient GHAZAL HUANG [id number] Ghazal 14:45:00 14:45:00 MARGARET Seybo ld 2022-02-21 2022-02-21 Outpatient GHAZAL HUANG [id number] Ghazal 14:45:00 14:45:00 MARGARET Seybo ld 2022-02-17 2022-02-17 Outpatient PREZAS, GHAZAL POND [id number] Ghazal 00:00:00 00:00:00 ALCIRA Seybol d 2022-02-15 2022-02-15 Outpatient PREZAS, GHAZAL POND [id number] Ghazal 00:00:00 00:00:00 ALCIRA Seybol d 2022-02-14 2022-02-14 Outpatient PREZAS, GHAZAL POND [id number] Ghazal 14:30:00 14:30:00 ALCIRA Seybol d 2022-02-11 2022-02-11 Outpatient PREZASGHAZAL [id number] Ghazal 00:00:00 00:00:00 ALCIRA Seybol d 2022-02-11 2022-02-11 Outpatient PREZAS, GHAZAL POND [id number] Ghazal 00:00:00 00:00:00 ALCIRA Seybol d 2022-02-10 2022-02-10 Outpatient LAB90 GHAZAL POND [id number] Ghazal 15:50:00 15:50:00 Seybol d 2022-02-07 2022-02-07 Outpatient PREZASGHAZAL [id number] Ghazal 00:00:00 00:00:00 ALCIRA Seybol d 2022-01-18 2022-01-18 Outpatient PREZASGHAZAL [id number] Ghazal 00:00:00 00:00:00 ALCIRA Seybol d 2022-01-18 2022-01-18 Outpatient PREZASGHAZAL [id number] Ghazal 00:00:00 00:00:00 ALCIRA Seybol d 2022-01-12 2022-01-12 Outpatient GHAZAL POND [id number] Ghazal 15:00:00 15:00:00 Seybol d 2022-01-12 2022-01-12 Outpatient GHAZAL POND [id number] Ghazal 14:00:00 14:00:00 Seybol d 2022-01-07 2022-01-07 Outpatient PREZAS, GHAZAL POND [id number] Ghazal 00:00:00 00:00:00 ALCIRA Seybol d 2022-01-07 2022-01-07 Outpatient CONFERENCEGHAZAL [id number] Ghazal 00:00:00 00:00:00 [facility] Seybol d 2022-01-06 2022-01-06 Outpatient PREZASGHAZAL [id number] Ghazal 00:00:00 00:00:00 ALCIRA Seybol d 2022-01-04 2022-01-04 Outpatient GHAZAL POND [id number] Ghazal 10:00:00 10:00:00 Seybol d 2022-01-04 2022-01-04 Outpatient GHAZAL POND [id number] Ghazal 09:55:00 09:55:00 Seybol d 2022-01-04 2022-01-04 Outpatient GHAZAL POND [id number] Ghazal 09:50:00 09:50:00 Seybol d 2022-01-04 2022-01-04 Outpatient GHAZAL POND [id number] Ghazal 09:45:00 09:45:00 Seybol d 2022-01-04 2022-01-04 Outpatient PREZASGHAZAL [id number] Ghazal 00:00:00 00:00:00 ALCIRA Seybol d 2022-01-04 2022-01-04 Outpatient PREZASGHAZAL [id number] Ghazal 00:00:00 00:00:00 ALCIRA Seybol d 2022-01-03 2022-01-03 Outpatient PREZASGHAZAL [id number] Ghazal 00:00:00 00:00:00 ALCIRA Seybol d 2021-12-30 2021-12-30 Outpatient PREZASGHAZAL [id number] Ghazal 00:00:00 00:00:00 ALCIRA Seybol d 2021-12-29 2021-12-29 Outpatient PREZASGHAZAL [id number] Ghazal 00:00:00 00:00:00 ALCIRA Seybol d 2021-12-29 2021-12-29 Outpatient PREGHAZAL CHAVEZ [id number] Ghazal 00:00:00 00:00:00 ALCIRA Seybol d 2021-12-28 2021-12-28 Outpatient LAB90 GHAZAL POND [id number] Ghazal 10:45:00 10:45:00 Seybol d 2021-12-28 2021-12-28 Outpatient GHAZAL FERNANDEZ [id number] Ghazal 09:45:00 09:45:00 ALCIRA Seybol d 2021-12-27 2021-12-27 Outpatient GHAZAL POND [id number] Ghazal 14:00:00 14:00:00 Seybol d 2021-12-27 2021-12-27 Outpatient GHAZAL POND [id number] Ghazal 13:00:00 13:00:00 Seybol d 2021-12-23 2021-12-23 Outpatient GHAZAL LOOMIS [id number] Ghazal 13:40:00 13:40:00 CARMEN Seybol d 2021-12-22 2021-12-22 Outpatient PREGHAZAL CHAVEZ [id number] Ghazal 00:00:00 00:00:00 ALCIRA Seybol d 2021-12-14 2021-12-14 Outpatient GAHZAL FERNANDEZ [id number] Ghazal 00:00:00 00:00:00 ALCIRA Seybol d 2021-12-13 2021-12-13 Outpatient GHAZAL PETERS [id number] Ghazal 00:00:00 00:00:00 ELYSE Seybol d 2021-11-15 2021-11-15 Outpatient GHAZAL LOOMIS [id number] Ghazal 13:10:00 13:10:00 CARMEN Seybol d 2021-10-15 2021-10-15 Outpatient GHAZAL PETERS [id number] Ghazal 00:00:00 00:00:00 ELYSE Seybol d 2021-10-14 2021-10-14 Outpatient GHAZAL PETERS [id number] Ghazal 00:00:00 00:00:00 ELYSE Seybol d 2021-09-24 2021-09-24 Outpatient GHAZAL PETERS [id number] Ghazal 00:00:00 00:00:00 ELYSE Seybol d 2021-09-14 2021-09-14 Outpatient GHAZAL PETERS [id number] Ghazal 00:00:00 00:00:00 ELYSE Seybol d 2021-08-25 2021-08-25 Office Sunny Nick [id number] Ghazal 11:00:00 11:15:00 Visit Elyse Fisher [id number] Se ybold Somogyi [id number] 2021-08-23 2021-08-23 Outpatient GHAZAL PETERS [id number] Ghazal 00:00:00 00:00:00 ELYSE Seybol d 2021-08-12 2021-08-12 Outpatient GHAZAL PETERS [id number] Ghazal 00:00:00 00:00:00 ELYSE Seybol d 2021-08-09 2021-08-09 Outpatient GHAZAL PETERS [id number] Ghazal 00:00:00 00:00:00 ELYSE Seybol d 2021-06-16 2021-06-16 Office Nick PETERS [id number] Ghazal 15:15:00 15:15:00 Visit ELYSE Fisher [id number] Se ybold [id number] 2021-05-04 2021-05-04 Office Sunny Romero [id number] Ghazal 10:30:00 11:15:00 Visit Elyse Fisher [id number] Se ybold Somogyi [id number] 2021-04-30 2021-04-30 Outpatient GHAZAL MANUEL [id number] Ghazal 00:00:00 00:00:00 BETHJEAN-CLAUDE Seybo ld 2019-06-20 2019-06-20 Outpatient Wallace VFP VFP [id number] [facility] 11:34:00 11:34:00 _A_AH [id number] Family Practic e 2019-06-20 2019-06-20 Outpatient Wallace VFP VFP [id number] [facility] 11:34:00 11:34:00 _A_AH [id number] Family Practic e Results This patient has no known results.
[2022-11-11 13:47] LABS: Absolute Lymphocytes (CBC) 1.2 K/uL (0.7-4.9); Hematocrit 38.1 % (36.0-45.0); Lymphocytes % 20.1 % (15.3-44.8); MCV 88.5 fL (80-100); MPV 7.6 fL (7.6-11.3); RBC Red Blood Cell Count 4.31 M/uL (3.86-4.86)
[2022-11-11 14:10] LABS: Albumin 3.6 g/dL (3.4-5.0); Bilirubin Direct 0.1 mg/dL (0-0.2); Bilirubin Indirect, Calculated 0.3 mg/dL (0.2-0.8); Bilirubin Total 0.4 mg/dL (0.2-1.0); Magnesium 2.1 mg/dL (1.6-2.4); Protein, Total 7.4 g/dL (6.4-8.2); Troponin High Sensitivity 6.4 pg/mL (<58.9)
--- NOTE | 2022-11-11 15:14 | RAD REPORT ---
EXAM DESCRIPTION: [place] Single View11/11/2022 2:32 pm CLINICAL HISTORY: Chest pain COMPARISON: September 2022 FINDINGS: The lungs appear clear of acute infiltrate. The heart is normal size IMPRESSION: No acute abnormalities displayed
--- NOTE | 2022-11-11 17:19 | ER ---
Nurse's Notes [facility] Name: Kelly Mejia Age: 77 yrs Sex: Female : 1945 Arrival Date: 11/11/2022 Time: 12:38 Bed 14 Private MD: Diagnosis: Shortness of breath;Chest pain, unspecified-pressure Presentation: 11/11 12:45 Chief complaint: Patient states: "I've been walking on the treadmill at the [facility]. mb9 When I got on the treadmill to walk slowly, my chest felt like something was sitting on it and got SOB of breath. I get SOB when I mow the yard and get this chest tightness when walking. I got a stress test and Echo a few weeks ago but passed that, it just showed that I have a 1st degree heart block. Dr. Staley is my service order clerk. But something just doesn't feel right". Coronavirus screen: Vaccine status: Patient reports receiving the 2nd dose of the covid vaccine. Ebola Screen: No symptoms or risks identified at this time. Initial Sepsis Screen: Does the patient meet any 2 criteria? HR > 90 bpm. Does the patient have a suspected source of infection? No. Patient's initial sepsis screen is negative. Risk Assessment: Do you want to hurt yourself or someone else? Patient reports no desire to harm self or others. Onset of symptoms was November 11, 2022. 12:45 Method Of Arrival: Ambulatory mb9 12:45 Acuity: JEREMIAS 3 mb9 Triage Assessment: 12:49 General: Appears in no apparent distress. Behavior is calm, cooperative. Pain: Denies mb9 pain. Neuro: Enriquez Agitation-Sedation Scale (RASS): 0 - Alert and Calm Level of Consciousness is awake, alert, obeys commands, Oriented to person, place, time, situation, Appropriate for age. Cardiovascular: Reports shortness of breath, chest tightness. Respiratory: Reports shortness of breath on exertion Onset: The symptoms/episode began/occurred this morning, the patient has mild shortness of breath. GI: No signs and/or symptoms were reported involving the gastrointestinal system. Derm: Skin is pink, warm \\T\\ dry. Musculoskeletal: Range of motion: intact in all extremities. Historical: - Allergies: 12:48 Celexa; mb9 - Home Meds: 12:48 atorvastatin 20 mg Oral tab 1 tab once daily [Active]; alendronate 70 mg Oral tab 1 tab mb9 once wkly [Active]; PreserVision AREDS Oral [Active]; glipizide 5 mg Oral tablet once [Active]; - PMHx: 12:48 diabetes mellitus; Hypercholesterolemia; Hypertensive disorder; mb9 - PSHx: 12:48 Total abdominal hysterectomy; mb9 - Immunization history:: Adult Immunizations up to date. - Social history:: Smoking status: Patient denies any tobacco usage or history of. Screenin:14 [facility] ED Fall Risk Assessment (Adult) History of falling in the last 3 months, kc6 including since admission No falls in past 3 months (0 pts) Confusion or Disorientation No (0 pts) Intoxicated or Sedated No (0 pts) Impaired Gait No (0 pts) Mobility Assist Device Used No (0 pt) Altered Elimination No (0 pt) Score/Fall Risk Level 0 - 2 = Low Risk. Abuse screen: Denies threats or abuse. Denies injuries from another. Nutritional screening: No deficits noted. Tuberculosis screening: No symptoms or risk factors identified. Assessment: 16:15 General: Appears in no apparent distress. comfortable, Behavior is calm, cooperative, kc6 appropriate for age. Pain: Denies pain. Neuro: Level of Consciousness is awake, alert, obeys commands, Oriented to person, place, time, situation, Appropriate for age. Cardiovascular: Reports shortness of breath, Heart tones S1 S2 present Capillary refill < 3 seconds Rhythm is sinus rhythm. Respiratory: Airway is patent Trachea midline Respiratory effort is even, unlabored, Respiratory pattern is regular, symmetrical. GI: No signs and/or symptoms were reported involving the gastrointestinal system. : No signs and/or symptoms were reported regarding the genitourinary system. EENT: No signs and/or symptoms were reported regarding the EENT system. Derm: No signs and/or symptoms reported regarding the dermatologic system. Skin is intact, is healthy with good turgor, Skin is pink, warm \\T\\ dry. Musculoskeletal: No signs and/or symptoms reported regarding the musculoskeletal system. Circulation, motion, and sensation intact. Capillary refill < 3 seconds, Range of motion: intact in all extremities. 17:15 Reassessment: Patient appears in no apparent distress at this time. No changes from kc6 previously documented assessment. Patient and/or family updated on plan of care and expected duration. Pain level reassessed. Patient is alert, oriented x 3, equal unlabored respirations, skin warm/dry/pink. Vital Signs: 12:45 BP 158 / 97; Pulse 98; Resp 18; Temp 98.8; Pulse Ox 98% on R/A; Weight 79.38 kg; Height mb9 5 ft. 4 in. ; Pain 0/10; 16:14 BP 158 / 75; Pulse 78; Resp 20 S; Pulse Ox 99% on R/A; kc6 17:46 BP 151 / 76; Pulse 74; Resp 19 S; Pulse Ox 98% on R/A; kc6 12:45 Body Mass Index 30.04 (79.38 kg, 162.56 cm) mb9 12:45 Pain Scale: Adult mb9 ED Course: 12:43 Patient arrived in ED. im 12:48 Triage completed. mb9 12:49 Arm band placed on. mb9 12:59 EKG done, by ED staff, reviewed by Rufus Smith MD. mb9 13:23 Rufus Smith MD is Attending Physician. kdr 13:39 Inserted saline lock: 20 gauge in left antecubital area, using aseptic technique. aw1 13:39 Initial lab(s) drawn, by me, sent to lab. aw1 14:34 XRAY Chest (1 view) In Process Unspecified. EDMS 16:00 Daja Celaya, RN is Primary Nurse. kc6 16:15 Patient has correct armband on for positive identification. Bed in low position. Call kc6 light in reach. Side rails up X 1. Adult w/ patient. 18:06 No provider procedures requiring assistance completed. IV discontinued, intact, kc6 bleeding controlled, No redness/swelling at site. Pressure dressing applied. Administered Medications: No medications were administered Medication: 18:06 VIS not applicable for this client. kc6 Outcome: 17:19 Discharge ordered by . kdr 18:06 Discharged to home ambulatory, with significant other. kc6 18:06 Condition: improved 18:06 Discharge instructions given to patient, Instructed on discharge instructions, follow up and referral plans. Demonstrated understanding of instructions, follow-up care. 18:06 Patient left the ED. kc6 Signatures: Dispatcher [employer] EDMI Rufus Smith MD MD kdr Campbell, Kaitlyn, RN RN kc6 Macie Loyola RN RN mb9 Noreen Duke Alyssa aw1 Corrections: (The following items were deleted from the chart) 12:49 12:48 Home Meds: metformin 500 mg Oral tab 1 tab; daily; [facility] 12:49 12:48 Home Meds: metoprolol succinate 100 mg Oral CSpX 1 cap once daily; [place] [id number] 12:51 12:45 Chief complaint: Patient states: "I've been walking on the treadmill at the [place] [address] center. When I got on the treadmill to walk slowly, my chest felt like something was sitting on it and got SOB of breath. I get SOB when I mow the yard and get this chest tightness when walking. I got a stress test and Echo a few weeks ago but passed that. Dr. Staley is my service order clerk. But something just doesn't feel right" [facility]
--- NOTE | 2022-11-11 17:19 | EDPHYS ---
Physician Documentation [facility] Name: Kelly Mejia Age: 77 yrs Sex: Female : 1945 Arrival Date: 11/11/2022 Time: 12:38 Bed 14 Private MD: ED Physician Rufus Smith HPI: 11/11 14:53 This 77 yrs old Female presents to ER via Ambulatory with complaints of Shortness Of kdr Breath, Chest Pressure. 15:07 Patient states that when she was on the treadmill this morning she started to have kdr palpitations, accelerated heart rate and chest pressure. She did not feel that she had exerted herself enough to have resulted in the elevated heart rate. Additionally she had the chest discomfort which she could not describe beyond just generally not feeling well and pressure. She has not had this before. She recently had an echo and stress test which were is negative for a preop evaluation. She is nonacute and nontoxic at the time of presentation. She was short of breath with the chest discomfort but not diaphoretic or nauseated.. Onset: The symptoms/episode began/occurred acutely, just prior to arrival. Severity of symptoms: At their worst the symptoms were mild in the emergency department the symptoms are unchanged. The patient has not experienced similar symptoms in the past. The patient has not recently seen a physician. Historical: - Allergies: 12:48 Celexa; mb9 - Home Meds: 12:48 atorvastatin 20 mg Oral tab 1 tab once daily [Active]; alendronate 70 mg Oral tab 1 tab mb9 once wkly [Active]; PreserVision AREDS Oral [Active]; glipizide 5 mg Oral tablet once [Active]; - PMHx: 12:48 diabetes mellitus; Hypercholesterolemia; Hypertensive disorder; mb9 - PSHx: 12:48 Total abdominal hysterectomy; mb9 - Immunization history:: Adult Immunizations up to date. - Social history:: Smoking status: Patient denies any tobacco usage or history of. ROS: 15:07 Constitutional: Negative for fever, chills, and weight loss, Eyes: Negative for injury, kdr pain, redness, and discharge, ENT: Negative for injury, pain, and discharge, Neck: Negative for injury, pain, and swelling, Abdomen/GI: Negative for abdominal pain, nausea, vomiting, diarrhea, and constipation, Back: Negative for injury and pain, : Negative for injury, bleeding, discharge, and swelling, MS/Extremity: Negative for injury and deformity, Skin: Negative for injury, rash, and discoloration, Neuro: Negative for headache, weakness, numbness, tingling, and seizure activity. Psych: Negative for depression, anxiety, suicide ideation, homicidal ideation, and hallucinations, Allergy/Immunology: Negative for hives, rash, and allergies, Endocrine: Negative for neck swelling, polydipsia, polyuria, polyphagia, and marked weight changes, Hematologic/Lymphatic: Negative for swollen nodes, abnormal bleeding, and unusual bruising. 15:07 Cardiovascular: Positive for chest pain, palpitations, Negative for edema, orthopnea. 15:07 Respiratory: Positive for dyspnea on exertion, shortness of breath, Negative for cough, hemoptysis, orthopnea, pleurisy, sputum production, wheezing. Exam: 15:07 Constitutional: This is a well developed, well nourished patient who is awake, alert, kdr and in no acute distress. Head/Face: Normocephalic, atraumatic. Eyes: Pupils equal round and reactive to light, extra-ocular motions intact. Lids and lashes normal. Conjunctiva and sclera are non-icteric and not injected. Cornea within normal limits. Periorbital areas with no swelling, redness, or edema. Neck: Trachea midline, no thyromegaly or masses palpated, and no cervical lymphadenopathy. Supple, full range of motion without nuchal rigidity, or vertebral point tenderness. No Meningismus. Chest/axilla: Normal chest wall appearance and motion. Nontender with no deformity. No lesions are appreciated. Cardiovascular: Regular rate and rhythm with a normal S1 and S2. No gallops, murmurs, or rubs. Normal PMI, no JVD. No pulse deficits. Respiratory: Lungs have equal breath sounds bilaterally, clear to auscultation and percussion. No rales, rhonchi or wheezes noted. No increased work of breathing, no retractions or nasal flaring. Abdomen/GI: Soft, non-tender, with normal bowel sounds. No distension or tympany. No guarding or rebound. No evidence of tenderness throughout. Back: No spinal tenderness. No costovertebral tenderness. Full range of motion. Skin: Warm, dry with normal turgor. Normal color with no rashes, no lesions, and no evidence of cellulitis. MS/ Extremity: Pulses equal, no cyanosis. Neurovascular intact. Full, normal range of motion. Neuro: Awake and alert, GCS 15, oriented to person, place, time, and situation. Cranial nerves II-XII grossly intact. Motor strength 5/5 in all extremities. Sensory grossly intact. Cerebellar exam normal. Normal gait. Psych: Awake, alert, with orientation to person, place and time. Behavior, mood, and affect are within normal limits. Vital Signs: 12:45 BP 158 / 97; Pulse 98; Resp 18; Temp 98.8; Pulse Ox 98% on R/A; Weight 79.38 kg; Height mb9 5 ft. 4 in. ; Pain 0/10; 16:14 BP 158 / 75; Pulse 78; Resp 20 S; Pulse Ox 99% on R/A; kc6 17:46 BP 151 / 76; Pulse 74; Resp 19 S; Pulse Ox 98% on R/A; kc6 12:45 Body Mass Index 30.04 (79.38 kg, 162.56 cm) mb9 12:45 Pain Scale: Adult mb9 MDM: 17:19 Patient medically screened. kdr 18:39 Data reviewed: vital signs, nurses notes. [facility] 11/11 13:24 Order name: Basic Metabolic Panel; Complete Time: 14:45 kdr 11/11 13:24 Order name: CBC with Diff; Complete Time: 14:45 kdr 11/11 13:24 Order name: LFT's; Complete Time: 14:45 [facility] 11/11 13:24 Order name: Magnesium; Complete Time: 14:45 [facility] 11/11 13:24 Order name: NT PRO-BNP; Complete Time: 14:45 [facility] 11/11 13:24 Order name: Troponin HS; Complete Time: 14:45 [facility] 11/11 14:48 Order name: Troponin High Sensitivity: draw three (3) hours after initial draw; kdr Complete Time: 17:11/11 13:24 Order name: XRAY Chest (1 view); Complete Time: 17:09 kdr 11/11 13:24 Order name: EKG; Complete Time: 13:25 kdr 11/11 12:59 Order name: EKG - Nurse/Tech; Complete Time: 12:59 9 11/11 13:24 Order name: Cardiac monitoring; Complete Time: 16:01 kdr 11/11 13:24 Order name: EKG - Nurse/Tech; Complete Time: 13:25 kdr 11/11 13:24 Order name: IV Saline Lock; Complete Time: 13:39 kdr 11/11 13:24 Order name: Labs collected and sent; Complete Time: 13:39 kdr 11/11 13:24 Order name: O2 Per Protocol; Complete Time: 16:00 kdr 11/11 13:24 Order name: O2 Sat Monitoring; Complete Time: 16:00 kdr Administered Medications: No medications were administered Disposition Summary: 11/11/22 17:19 Discharge Ordered Location: Home kdr Problem: new kdr Symptoms: have improved kdr Condition: Stable kdr Diagnosis - Shortness of breath kdr - Chest pain, unspecified - pressure kdr Followup: kdr - With: Private Physician - When: 2 - 3 days - Reason: If symptoms return, Further diagnostic work-up, Recheck today's complaints, Continuance of care, Re-evaluation by your physician Discharge Instructions: - Discharge Summary Sheet kdr - Shortness of Breath, Adult, [id number] kdr - Nonspecific Chest Pain, Adult, [id number] kdr Forms: - Medication Reconciliation Form kdr - Thank You Letter kdr - Patient Portal Instructions kdr Signatures: Dispatcher [employer] EDMS Rufus Smith MD MD kdr Macie Loyola RN RN mb9 Corrections: (The following items were deleted from the chart) 12:49 12:48 Home Meds: metformin 500 mg Oral tab 1 tab; daily; mb9 mb9 12:49 12:48 Home Meds: metoprolol succinate 100 mg Oral CSpX 1 cap once daily; mb9 mb9
[2022-11-11 18:32] VITALS: TEMP 98.8
[2022-11-11 18:35] VITALS: BP 151/76; O2SAT 98
--- NOTE | 2022-11-14 13:11 | EKG ---
Test Date: 2022-11-11 Test Time: 12:57:26 Allergy Nurse: MB MEASUREMENT RESULTS: Intervals: Rate: 99 CT: 196 QRSD: 72 QT: 370 QTc: 474 [place]: P: 74 CT: 196 QRS: 10 T: 77 INTERPRETIVE STATEMENTS: Sinus rhythm with frequent premature ventricular complexes Cannot rule out Anterior infarct, age undetermined Abnormal ECG Compared to ECG 09/20/2022 09:36:50 Ventricular premature complex(es) now present Myocardial infarct finding now present First degree AV block no longer present Electronically Signed On 11-14-22 13:07:20 CDT by Hesham Staley
== END 2022-11-11 18:06 | disposition home or self-care (01) ==
LOC: ER 12:38
DX: R07.89 Other chest pain (principal); E11.9 Type 2 diabetes mellitus without complications; I10 Essential (primary) hypertension; Z88.8 Allergy status to other drugs, medicaments and biological substances
CPT/HCPCS: 36415; 71045; 80048; 80076; 83735; 83880; 84484; 85025; 93005; 99284

== ENCOUNTER 2022-11-15 08:53 | Day surgery (SDC) | payer OTHER ==
[2022-09-20 10:08] LABS: Absolute Lymphocytes (CBC) 1.2 K/uL (0.7-4.9); Hematocrit 38.2 % (36.0-45.0); MCV 88.9 fL (80-100); MPV 7.7 fL (7.6-11.3); Platelets 197 thou/uL (152-406); RBC Red Blood Cell Count 4.29 M/uL (3.86-4.86)
[2022-09-20 10:11] LABS: Protime INR 0.93
--- NOTE | 2022-09-20 10:14 | RAD REPORT ---
EXAM DESCRIPTION: RAD - Chest Pa And Lat (2 Views) - 09/20/2022 10:02 am CLINICAL HISTORY: Pre op pending procedure, hypertension and diabetes COMPARISON: Chest Single View dated 03/29/2022 FINDINGS: Lines: None. Lungs: No evidence of edema or pneumonia. Pleural: No significant pleural effusions or pneumothorax. Cardiac: The heart size is within normal limits. Mediastinum: Within normal limits. Bones: No acute fractures. Other: None IMPRESSION: No acute cardiopulmonary disease.
[2022-09-20 10:18] LABS: Potassium 3.8 mEq/L (3.5-5.1)
--- NOTE | 2022-09-21 08:19 | EKG ---
Test Date: 2022-09-20 Test Time: 09:36:50 Endless Belt Finisher: ALLAN MEASUREMENT RESULTS: Intervals: Rate: 70 [place]: 232 QRSD: 74 QT: 432 QTc: 466 [place]: P: 76 [place]: 232 QRS: 4 T: 65 INTERPRETIVE STATEMENTS: Sinus rhythm with 1st degree AV block Otherwise normal ECG Compared to ECG 03/29/2022 08:47:37 First degree AV block now present Electronically Signed On 09-21-22 08:17:33 CDT by Kaleb Fischer
[2022-11-15] MEDS ORDERED: NA CHLORIDE 0.9% 1,000 ML ONE ×2 (09:18→11:41)
[2022-11-15] MEDS ORDERED: propofoL 200 MG/20 ML VIAL IV ONE ×2 (09:49→11:17)
[2022-11-15] MEDS ORDERED: LIDOCAINE 1% MPF 5 ML VIAL ONE (09:50)
[2022-11-15] MEDS ORDERED: FENTANYL CITR 100 MCG/2 ML ONE ×2 (09:50→11:08)
[2022-11-15] MEDS ORDERED: CEFAZOLIN SODIUM 2 GM/VIAL ONE (10:05)
[2022-11-15] MEDS ORDERED: dexAMETHasone 10 MG/ML VIAL ONE (10:13)
[2022-11-15] MEDS ORDERED: GLYCOPYRROLATE 0.2 MG/ML SYR ONE ×2 (10:19→10:26)
[2022-11-15] MEDS ORDERED: ONDANSETRON 4 MG/2 ML VIAL ONE (10:19)
[2022-11-15] MEDS ORDERED: NS 0.9% VIAL 10 ML ONE (10:27)
[2022-11-15] MEDS ORDERED: Phenylephrine HCl 10 MG/ML 1 ML VIAL ONE (11:21)
[2022-11-15] MEDS ORDERED: CODEINE 30MG/APAP 300MG TAB PO PRN (12:08)
[2022-11-15] MEDS ORDERED: PHENAZOPYRIDINE 100MG TAB PO ONE (12:08)
--- NOTE | 2022-11-15 12:09 | RAD REPORT ---
EXAM DESCRIPTION: RAD - Urethrocystogrphy Retrograde - 11/15/2022 11:55 am CLINICAL HISTORY: POSS RT RETRO PYEL W STENT COMPARISON: No comparisons FINDINGS: Total fluoro time: 0.15 minutes
[2022-11-15 12:29] VITALS: TEMP 97.2
--- NOTE | 2022-11-15 12:54 | OP ---
Surgeon: ANNA GERMAN Preoperative Diagnoses: 1.Bladder calculus. 2.Intravesical intrusion of suburethral sling. Postoperative Diagnoses: 1.Two large greater than 2 cm bladder calculi, 1 free-floating and another used to the sling materia l. 2.Intravesical intrusion of suburethral sling at the right lateral bladder neck region. Principal Procedures: 1.Laser cystolitholapaxy of 2 large and very hard bladder calculi (extensive). 2.Laser excision of intravesical intrusion of sling mesh material. 3.Right retrograde pyelography. 4.Right ureteral stent placement. 5.Urethral Roman catheter placement. Indication For Procedure: Ms. Mejia presented to the [facility]rology [facility] with some bothersome urinary sy mptoms and microscopic hematuria. She underwent evaluation revealing the presence of a bladder calcu dariel attached to what appeared to be sling material emanating around what I suspected to be the ureter al orifice. She presents today for definitive management of the stones, recognizing she will eventua lly need the mesh removed. Procedure In Detail: The patient was consented in the preoperative holding area before being transfe rred to operative suite where general anesthesia was induced. She was given Ancef 2 g IV antimicrobi al prophylaxis, and pneumo boots were provided for DVT prophylaxis. She was placed in the lithotomy position, padded and secured to the table appropriately. Her genitalia were prepped with Hibiclens a nd she was draped in standard fashion. The case was begun using a 22-Uruguayan rigid cystoscope to bony erse the urethra and into the bladder with ease. The bladder was decompressed of fluid and urine, an d surveyed. A free-floating stone approximately 2-3 cm in diameter was noted posteriorly within the bladder. As a result, I targeted this using a 550 nm laser fiber initially at power setting of 1.5 j oules and 20 hertz. Upon initial attempts at fragmentation, the stone was noted to be incredibly sam d and very slow to fragment at that degree of power. As a result, I switched to the resectoscope, fo r continuous flow, and using normal saline as irrigation, I increased the power to 2 joules and 25 he rtz to continue to fragment the stone ultimately maximizing power at 3 joules and 20 hertz equaling 6 0 paez of power, the maximum of this laser provided in order to fragment this very lester hard ston e. Extensive fragmentation of the stone was required in order to reach fragments small enough to be removed either by direct vision or via Ellik evacuation. Once that stone was removed, I surveyed the bladder and then encountered the other attached stone that was situated in the right lateral wall as sociated with some intrusion of suburethral sling material into her bladder. The ureteral orifices w ere somewhat ectopically displaced and distally placed toward the bladder neck; so the right ureteral orifice was visualized and not involved. As a result, I again targeted this stone material extendin g off the sling and using similar power settings as before began to fragment the stone releasing it f rom the sling material and continuing to fragment the stone material into fragments small enough to b e removed via Ellik evacuation or direct vision. Again, extensive fragmentation was required given t he lester hard nature of the stones. Once all the stone material had been removed, I then turned my attention back to the intruded sling material and begin to use a laser to fragment the stone materia l off the fibers of the mesh. I then continued to try to release as much of the intruded mesh from t he intraluminal surface and excising it just beneath the submucosal layers of the bladder and at the right lateral wall at the bladder neck. Upon removal of all of that using the laser, there was some oozing from the mucosa; so we switched to sterile water irrigation and used a Bugbee electrode to ful gurate the base of the mucosa. The length of the intruded track of mesh was approximately 3-4 cm. A s a result, I placed a Sensor wire into the right ureteral orifice and I was able to navigate the Sen sor wire into the collecting system passing a dual-lumen catheter over it to perform a retrograde candido logram to ensure absence of obstruction. Right retrograde pyelography: Using a 70:30 mixture of Omnipaque and saline, contrast was injected via the second lumen of the dual -lumen catheter and did propagate up the distal into the mid and proximal ureter before entering a no ndilated renal pelvis without pelvicaliectasis. As a result, no distal ureteral obstruction was note d. So I removed the dual-lumen catheter and back-loaded the cystoscope over the Sensor wire and pass ed a 6-[place]ayan by 26 cm double-J ureteral stent with a coil observed fluoroscopically in her kidney an d 1 cystoscopically formed in the bladder. I then decompressed her bladder of fluid and urine search ing for any additional foreign body material or stones removing it along the way. I then refilled he r bladder partially before placing a 16-[place]ayan urethral Roman catheter with 10 cc of sterile water in the balloon to allow decompression and bladder rest. She was then taken out of the lithotomy positi on, awakened from general anesthesia, transferred to a stretcher, and then transferred to the recover y room in good condition. Complications: None. Discharge Disposition: She should keep the urethral Roman catheter until Monday for bladder rest and to allow mucosal healing from the procedure. She will be given Bactrim Double Strength tablets twic e daily for the next 5 days, which should cover her through the voiding trial unless the preoperative urine culture taken yesterday reveals another organism with different sensitivity patterns. She robyn uld be referred immediately back to Dr. Drake for management of the intruded mesh. She will requi re definitive extraction of the entirety of the mesh in a timely fashion to prevent recurrent stone f ormation along the intruded mesh on the right side. Subsequently, the right ureteral stent may be ex tracted, but it must be at least removed or exchanged within 6 months. RICKY/GERTRUDEL Voice ID: [id number] Report ID: [id number]
[2022-11-15 12:55] VITALS: BP 135/70; O2SAT 92
== END 2022-11-15 13:40 | disposition home or self-care (01) ==
LOC: OR 08:53
PROVIDERS: ATTEND Urology
PROC: 0TCB8ZZ Extirpation of Matter from Bladder, Via Natural or Artificial Opening Endoscopic (ICD-10-PCS; 2022-11-15)
PROC: 0TFB8ZZ Fragmentation in Bladder, Via Natural or Artificial Opening Endoscopic (ICD-10-PCS; principal; 2022-11-15 10:30)
DX: N21.0 Calculus in bladder (principal); N20.0 Calculus of kidney; E11.9 Type 2 diabetes mellitus without complications; T19.1XXA Foreign body in bladder, initial encounter; T83.718A Erosion of other implanted mesh to organ or tissue, initial encounter
CPT/HCPCS: 52318; 52310; 93005; 87088; 85025; 87086; 80048; 36415; 85610; 82947 ×2; 88300; 85730; 82360; 71046; 74450; 51610; A4216; J2704 ×2; J2001; J2371; J3010 ×2; J1100; J2405; J7030 ×2